=== PATIENT | male | born 1965 | race Caucasian/White ===

== ENCOUNTER 2016-03-17 13:44 | Emergency (ER) | payer MEDICARE, MEDICAID ==
[2016-03-17 13:49] VITALS: BP 160/93
[2016-03-17] MEDS ORDERED: Amoxicillin/Clavulanate TAB* 875 MG PO ONE (14:33)
[2016-03-17] MEDS ORDERED: Ibuprofen TAB* 800 MG PO ONE (14:34)
--- NOTE | 2016-03-17 14:40 | ED ---
I, Oh,Ronen, scribed for Vignesh Hammer MD on 03/17/16 at 1417 . Throat Pain/Nasal Congestion - HPI Summary HPI Summary: This 50 y/o male presents to ED for acute throat pain since 2 days ago. Swallowing makes the throat discomfort worse. Pt became concerned about possible strep throat. Pt reports mild chills but denies any fever. Pt is nonsmoker and occasional drinker. He denies any PMHx, but reports PSHx of splenectomy. EMR indicates PMHx of HTN. FHx is negative for cardiac dz but positive for HTN. - History of Current Complaint Chief Complaint: EDThroatPain Hx Obtained From: Patient, Medical Records Onset/Duration: Sudden Onset, Lasting Days, Still Present Severity: Mild Associated Signs And Symptoms: Positive: Negative. Negative: Dysphagia Cough: None - Allergies/Home Medications Allergies/Adverse Reactions: Allergies Allergy/AdvReac Type Severity Reaction Status Date / Time nose drops Allergy Severe Swelling Uncoded 11/30/15 08:03 Of Face,Lips,& Throat PMH/Surg Hx/FS Hx/Imm Hx Endocrine/Hematology History: Denies: Hx Diabetes, Hx Thyroid Disease Cardiovascular History: Reports: Hx Hypertension - X 7-10 YEARS TAKES RX. Respiratory History: Denies: Hx Asthma, Hx Chronic Obstructive Pulmonary Disease (COPD), Hx Seasonal Allergies GI History: Denies: Hx Ulcer - Surgical History Surgery Procedure, Year, and Place: 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 Infectious Disease History: No Infectious Disease History: Denies: Hx Hepatitis, Hx Human Immunodeficiency Virus (HIV), Traveled Outside the [place] in Last 30 Days - Family History Known Family History: Positive: Hypertension - Social History Alcohol Use: Occasionally Hx Substance Use: Yes Substance Use Type: Reports: Marijuana Hx Tobacco Use: No Smoking Status (MU): Never Smoked Tobacco Review of Systems Positive: Chills. Negative: Fever Positive: Sore Throat Negative: Anxious, Depressed All Other Systems Reviewed And Are Negative: Yes Physical Exam - Summary Physical Exam Summary: Vital signs: Reviewed Gen.: Patient is a well-developed and nourished male in no acute distress. Patient is lying comfortably on the stretcher. Head: Normacephalic and atraumatic Eyes: PERRLA, EOMI x2. Ears: Right and Left ear canal and TM WNL Nose and mouth: Positive pharingeal erythema w/o exudate. Neck: Supple, no lymphadenopathy, no JVD Lungs: CTA B/L CVS: S1 & S2 present. No murmurs appreciated. Triage Information Reviewed: Yes Vital Signs On Initial Exam: Initial Vitals Temp Pulse Resp BP Pulse Ox 97.1 F 68 16 160/93 100 03/17/16 13:45 03/17/16 13:45 03/17/16 13:45 03/17/16 13:45 03/17/16 13:45 Vital Signs Reviewed: Yes Diagnostics - Vital Signs Vital Signs Temp Pulse Resp BP Pulse Ox 03/17/16 13:45 97.1 F 68 16 160/93 100 - Laboratory Lab Results: Lab Results 03/17/16 Range/Units 14:15 Group A Strep Rapid Negative (Negative) Lab Statement: Any lab studies that have been ordered have been reviewed, and results considered in the medical decision making process. EENT Course/Dx - Course Assessment/Plan: This 50 y/o male presents to ED for acute throat pain since 2 days ago. Swallowing makes the throat discomfort worse. Pt became concerned about possible strep throat. Pt reports mild chills but denies any fever. Patient has Hx of splenectomy. He was given Augmentin. He will be discharged home with f/u of PMD. If he develops worsening symptoms and fever he should return to the Ed for further w/u and management. I discussed all my findings and test results with the patient. Patient understands and agrees. Patient was instructed to return to the emergency room immediately if any of the symptoms return or worsens. Patient understands and agrees. Plan of care was discussed with the patient and patient understands and agrees with the plan of care. All questions were answered at patient satisfaction. There were no further complaints or concerns. Patient was instructed to follow up with primary care physician within 3 to 5 days. Patient is hemodynamically stable. Patient is alert and oriented x 3. No acute neurological deficits. - Diagnoses Provider Diagnoses: Pharyngitis Discharge - Discharge Plan Condition: Stable Disposition: HOME Prescriptions: Amoxicillin/Clavulanate TAB* [Augmentin TAB 875*] 875 mg PO BID #20 tab Patient Education Materials: Pharyngitis (ED), Amoxicillin/Clavulanate Potassium (By mouth) Referrals: Ismael Lyn MD [Primary Care Provider] - 2 Days The documentation as recorded by the scribe, Oh,Soohyun accurately reflects the service I personally performed and the decisions made by me, Vignesh Hammer MD.
== END 2016-03-17 15:09 | disposition home or self-care (01) ==
LOC: ED 13:44
DX: J02.9 Acute pharyngitis, unspecified (principal); I10 Essential (primary) hypertension; Z88.8 Allergy status to other drugs, medicaments and biological substances
CPT/HCPCS: 87651; 99282; A9270-GY

== ENCOUNTER → 2016-05-20 | Emergency (ER) | payer MEDICARE, MEDICAID ==
[~2016-05-20] MED LIST: Azithromycin TAB* 250 MG PO ONE; LORazepam TAB(*) 1 MG PO ONE; Potassium Chlor TAB* 20 MEQ TAB.ER PO ONE; cefTRIAXone VIAL(*) 250 MG VIAL IM ONE
[2016-05-20 06:51] LABS: Urine Bacteria Absent (Absent); Urine Bilirubin Negative (Negative); Urine Glucose Negative (Negative); Urine Nitrite Negative (Negative)
--- NOTE | 2016-05-20 06:53 | ED ---
grupo Alice[employer] Timothy, scribed for Nick Dunlap MD on 05/20/16 at 0610 . Psychiatric Complaint - HPI Summary HPI Summary: Earle Menon Jr. is a 51 yo male presenting to [facility] with high BP, anxiety. Pt states he has been awake for 75 hours straight because he is urinating "every 10 minutes", and it khoury at the end. he states he vomited from anxiety. He states he has been out of Xanax for the past 3 days. Pt is very anxious per triage. He also claims a rash for the past month that he has used hydrocortisone on for itch relief. A girl he has been intimate with had a yeast infection, she took a pill and he was given one as well over 2 months ago. He states the Sx are the same now. He states he has "felt warm" and has had chills. He denies pain around his testicles, but complains of itching around his scrotum. He also notices some discharge. His MHx includes HTN, GERD, anxiety , and substance use. - History Of Current Complaint Time Seen by Provider: 05/20/16 06:05 Hx Obtained From: Patient Onset/Duration: Sudden Onset Timing: Constant Severity Initially: Moderate Severity Currently: Moderate Character: Anxious Aggravating Factor(s): Medication Non-compliance - no xanax for 3 days Has Suicidal: Denies: Thoughts, With A Plan Has Homicidal: Denies: Thoughts, With A Plan - Allergies/Home Medications Allergies/Adverse Reactions: Allergies Allergy/AdvReac Type Severity Reaction Status Date / Time Amoxicillin Allergy Mild Hives Verified 05/20/16 06:00 nose drops Allergy Severe Swelling Uncoded 11/30/15 08:03 Of Face,Lips,& Throat PMH/Surg Hx/FS Hx/Imm Hx Endocrine/Hematology History: Denies: Hx Diabetes, Hx Thyroid Disease Cardiovascular History: Reports: Hx Hypertension - X 7-10 YEARS TAKES RX. 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 Infectious Disease History: No Infectious Disease History: Denies: Hx Hepatitis, Hx Human Immunodeficiency Virus (HIV), Traveled Outside the [place] in Last 30 Days - Family History Known Family History: Positive: Hypertension - Social History Alcohol Use: Occasionally Hx Substance Use: Yes Substance Use Type: Reports: Marijuana Hx Tobacco Use: No Smoking Status (MU): Never Smoked Tobacco Review of Systems Positive: Fever - "feels warm", Chills Eyes: Negative ENT: Negative Cardiovascular: Negative Respiratory: Negative Positive: Vomiting Positive: burning, discharge, frequency Musculoskeletal: Negative Positive: Rash - itching around scrotum Neurological: Negative Psychological: Normal All Other Systems Reviewed And Are Negative: Yes Physical Exam - Summary Physical Exam Summary: The patient is well-nourished in no acute distress and in no acute pain. The skin is warm and diaphoretic and skin color reflects adequate perfusion. There is no rash on the palms of his hands. HEENT: The head is normocephalic and atraumatic. The pupils are equal and reactive. The conjunctivae are clear and without drainage. Nares are patent and without drainage. Mouth reveals moist mucous membranes and the throat is without erythema and exudate. The external ears are intact. The ear canals are patent and without drainage. The tympanic membranes are intact. Neck is supple with full range of motion and non-tender. There are no carotid bruits. There is no neck vein distension. Respiratory: Chest is non-tender. Lungs are clear to auscultation and breath sounds are symmetrical and equal. Cardiovascular: Hear is regular rate and rhythm. There is no murmur or rub auscultated. There is no peripheral edema and pulses are symmetrical and equal. Abdomen: The abdomen is soft and non-tender. There are normal bowel sounds heard in all four quadrants and there is no organomegaly palpated. Musculoskeletal: There is no back pain noted. Extremities are non-tender with full range of motion. There is good capillary refill. There is no peripheral edema or calf tenderness elicited. Pelvic: no testicular pain, bilateral inguinal adenpoathy, questionable penile discharge. Neurological: Patient is alert and oriented to person, place and time. The patient has symmetrical motor strength in all four extremities. Cranial nerves are grossly intact. Deep tendon reflexes are symmetrical and equal in all four extremities. Psychiatric: The patient is anxious. Triage Information Reviewed: Yes Vital Signs On Initial Exam: Initial Vitals Temp Pulse Resp BP Pulse Ox 98.5 F 91 18 178/100 97 05/20/16 05:50 05/20/16 05:50 05/20/16 05:50 05/20/16 05:50 05/20/16 05:50 Vital Signs Reviewed: Yes Diagnostics - Vital Signs Vital Signs Temp Pulse Resp BP Pulse Ox 05/20/16 05:50 98.5 F 91 18 178/100 97 - Laboratory Lab Statement: Any lab studies that have been ordered have been reviewed, and results considered in the medical decision making process. Course/Dx - Course Assessment/Plan: Earle Menon is a 51 yo male presenting to [facility] with anxiety, HTN, and urinary frequency and burning for the past 75 hours presenting him from sleeping. He also has an itchy rash on his scrotum. After clinical examination and review of his lab work, he will be discharged home with anxiety , prostatits, and STI, as well as appropriate instructions. - Differential Dx/Clinical Impression Differential Diagnosis/HQI/PQRI: Positive: Anxiety, Other - uti, prostatitis, std, Provider Diagnosis: Anxiety, Prostatitis, STI (sexually transmitted infection), Dysuria Discharge - Discharge Plan Condition: Stable Disposition: HOME Prescriptions: DOXYcycline CAP(*) [DOXYcycline 100MG CAP(*)] 100 mg PO BID #20 cap LORazepam TAB(*) [Ativan 1 MG TAB (*)] 1 mg PO Q8H PRN #15 tab MDD 3 PRN Reason: anxiety Patient Education Materials: Anxiety (ED), Prostatitis (ED), Sexually Transmitted Diseases (ED) Referrals: Ismael Lyn MD [Primary Care Provider] - Vignesh Pierce MD [Medical Doctor] - 2 Days Additional Instructions: Please follow up with Dr. Pierce regarding your visit to the emergency department today. Return to the emergency department with any new or recurring symptoms. The documentation as recorded by the grupo alaniz Timothy accurately reflects the service I personally performed and the decisions made by , Nick Dunlap MD.
[2016-05-20 06:55] LABS: Hematocrit 46 % (42-52); Hemoglobin 15.3 g/dl (14.0-18.0); Mean Corpuscular HGB Conc 34 g/dl (31-36); Mean Corpuscular Hemoglobin 31 pg (27-31); Mean Corpuscular Volume 91 fL (80-94); Mean Platelet Volume 10 um3 (7.4-10.4); Red Blood Count 5.02 10^6/ul (4.0-5.4); Red Cell Distribution Width 15 % (10.5-15)
[2016-05-20 06:58] LABS: Add Diff/Slide Review? Slide Review Added
[2016-05-20 07:10] LABS: Albumin 4.7 g/dL (3.2-5.2); BUN/Creatinine Ratio 10.4 (8-20); Calcium 10.8 mg/dL (8.6-10.3); EGFR African American 72.9 (>60); EGFR Non-African American 56.7 (>60); Globulin 3.7 g/dL (2-4); Potassium 3.3 mmol/L (3.5-5.0); Total Bilirubin 0.6 mg/dL (0.2-1.0); Total Protein 8.4 g/dL (6.4-8.9)
--- NOTE | 2016-05-20 07:20 | ED ---
Progress - Progress Note Progress Note: reviewed labs pt potassium 3.3 - pt take HCTZ Will give 40meq po Pt denies abd pain - aware slight elevation LFT Pt giving additional urine Will d/c home Course/Dx - Diagnoses Provider Diagnoses: Anxiety, Prostatitis, STI (sexually transmitted infection), Dysuria
[2016-05-20 07:35] VITALS: BP 167/95
[2016-05-20 08:51] LABS: C Reactive Protein 1.88 mg/L (< 5.00)
== END | disposition home or self-care (01) ==
LOC: ED 05:39
DX: N41.9 Inflammatory disease of prostate, unspecified (principal); A64 Unspecified sexually transmitted disease; R30.0 Dysuria; F41.9 Anxiety disorder, unspecified
CPT/HCPCS: 36415; 80053; 81003; 81015; 83605; 85025; 86140; 87491; 87591; 96372; 99282; A9270-GY; J0696

== ENCOUNTER 2016-06-30 17:27 | Emergency (ER) | payer MEDICARE, MEDICAID ==
--- NOTE | 2016-06-30 19:28 | UC ---
Complaint Male HPI - HPI Summary HPI Summary: Has had dysuria for months (since March?). Was seen in ED for same sx, treated for STIs though testing turned out negative. He felt like his sx improved for a while but now are back. Couldn't sleep last night, refers to dysuria, but was not getting up to go to bathroom. Instead it is the anxiety that was keeping him awake. He took his last two xanax last night but they didn' t help. Has chronic problems sleeping. Rash on groin and genitals for a couple weeks, red and flaky. Used monistat topically because partner had a vaginal yeast infection, wasn't helping so he switched to vitamin E lotion. For the last week or so noticed two small areas of hair thinning on R posterior part of head. Denies pain or itching. - History of Current Complaint Chief Complaint: UCGU Stated Complaint: RASH Time Seen by Provider: 06/30/16 18:53 Hx Obtained From: Patient Onset/Duration: Gradual Onset, Lasting Weeks Timing: Constant Severity Initially: Mild Severity Currently: Mild Location: Scrotum Character: Burning Aggravating Factor(s): Voiding, Palpation Associated Signs And Symptoms: Positive: Dysuria - Allergies/Home Medications Allergies/Adverse Reactions: Allergies Allergy/AdvReac Type Severity Reaction Status Date / Time Amoxicillin Allergy Mild Hives Verified 06/30/16 18:39 nose drops Allergy Severe Swelling Uncoded 06/30/16 18:39 Of Face,Lips,& Throat Home Medications: Home Medications Alprazolam [Xanax] 0.5 mg PO 06/30/16 [History] PMH/Surg Hx/FS Hx/Imm Hx Endocrine History Of: Denies: Diabetes, Thyroid Disease Cardiovascular History Of: Reports: Hypertension - X 7-10 YEARS TAKES RX. Denies: Cardiac Disorders Respiratory History Of: Denies: COPD, Asthma GI/ History Of: Denies: Ulcer Psychological History Of: Reports: Anxiety - Surgical History Surgical History: Yes Surgery Procedure, Year, and Place: 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 - Family History Known Family History: Positive: Hypertension - Social History Lives: With Family Alcohol Use: Daily Substance Use Type: Marijuana Smoking Status (MU): Never Smoked Tobacco Review of Systems Constitutional: Negative Skin: Rash Eyes: Negative ENT: Negative Respiratory: Negative Cardiovascular: Negative Gastrointestinal: Negative Genitourinary: Dysuria Motor: Negative Neurovascular: Negative Musculoskeletal: Negative Neurological: Negative Psychological: Anxious All Other Systems Reviewed And Are Negative: Yes Physical Exam Triage Information Reviewed: Yes Appearance: Well-Nourished Vital Signs: Initial Vital Signs Temp 98.1 F 06/30/16 18:42 Pulse 81 06/30/16 18:42 Resp 18 06/30/16 18:42 BP 147/110 06/30/16 18:42 Pulse Ox 100 06/30/16 18:42 Vital Signs Reviewed: Yes Eye Exam: Normal Eyes: Positive: Conjunctiva Clear ENT Exam: Normal ENT: Positive: Normal ENT inspection, Hearing grossly normal, Pharynx normal, TMs normal Dental Exam: Normal Neck exam: Normal Neck: Positive: Supple, Nontender, No Lymphadenopathy Respiratory Exam: Normal Respiratory: Positive: Chest non-tender, Lungs clear, Normal breath sounds, No respiratory distress, No accessory muscle use Cardiovascular Exam: Normal Cardiovascular: Positive: RRR, No Murmur Musculoskeletal Exam: Normal Psychological Exam: Other - anxious, interrupting a lot, somewhat pressured speech Skin Exam: Other - red confluent skin on genitals, some white flaking. No penile discharge. Testes descended and nontender. Skin: Positive: Other - 2 round areas 2cm and 3cm Complaint Male Course/Dx - Differential Dx/Diagnosis Provider Diagnoses: dysuria. genital dermatitis. anxiety. Elevated blood pressure due to anxiety Discharge - Discharge Plan Condition: Stable Disposition: HOME Prescriptions: Ciprofloxacin TAB* [Cipro 500 MG TAB*] 500 mg PO BID #14 tab Fluconazole [Diflucan 150 MG (NF)] 150 mg PO ONCE #2 tab Zolpidem TAB* [Ambien TAB*] 10 mg PO BEDTIME PRN #2 tab MDD 1 PRN Reason: Insomnia Patient Education Materials: Dysuria (ED), Dermatitis (ED) Referrals: James Hurley MD [Primary Care Provider] - Additional Instructions: Please follow up with Dr. Hurley's office about your trouble with sleeping ALESSANDRO. You have asked here and at the emergency department for sleep aides, but these are not the places to help with this problem. Call the Urology referral to make an appointment as soon as possible. Take the antifungal medicine but do not apply any more creams, ointments, or salves to your rash.
[2016-06-30 19:46] VITALS: BP 163/109
== END 2016-06-30 19:51 | disposition home or self-care (01) ==
LOC: UCEAST 17:27
DX: N48.89 Other specified disorders of penis (principal); R30.0 Dysuria; I10 Essential (primary) hypertension; F12.90 Cannabis use, unspecified, uncomplicated; F41.9 Anxiety disorder, unspecified; Z88.3 Allergy status to other anti-infective agents
CPT/HCPCS: 81003; 87086; 99212; G0463

== ENCOUNTER 2016-08-04 11:34 | Emergency (ER) | payer MEDICARE, MEDICAID ==
[2016-08-04 11:38] VITALS: BP 135/96
[2016-08-04] MEDS ORDERED: NS 0.9% 1000 ML* 1,000 ML IV ONE (12:02)
[2016-08-04 13:22] LABS: Hematocrit 44 % (42-52); Hemoglobin 14.8 g/dl (14.0-18.0); Mean Corpuscular HGB Conc 34 g/dl (31-36); Mean Corpuscular Hemoglobin 31 pg (27-31); Mean Corpuscular Volume 91 fL (80-94); Mean Platelet Volume 10 um3 (7.4-10.4); Red Blood Count 4.83 10^6/ul (4.0-5.4); Red Cell Distribution Width 15 % (10.5-15); White Blood Count 8.4 10^3/ul (3.5-10.8)
[2016-08-04 13:38] LABS: Albumin 4.5 g/dL (3.2-5.2); BUN/Creatinine Ratio 11.4 (8-20); C Reactive Protein 4.9 mg/L (< 5.00); EGFR African American 96.5 (>60); EGFR Non-African American 75.1 (>60); Globulin 3.4 g/dL (2-4); Potassium 3.5 mmol/L (3.5-5.0); Total Bilirubin 1.1 mg/dL (0.2-1.0); Total Protein 7.9 g/dL (6.4-8.9)
[2016-08-04 13:49] LABS: Urine Bacteria Absent (Absent); Urine Bilirubin Negative (Negative); Urine Glucose 1+(50 mg/dL) (Negative); Urine Nitrite Negative (Negative)
[2016-08-04] MEDS ORDERED: DOXYcycline CAP(*) 100 MG PO ONE (14:53)
[2016-08-04] MEDS ORDERED: cefTRIAXone VIAL(*) 250 MG VIAL IM ONE (14:53)
--- NOTE | 2016-08-04 18:30 | ED ---
Claudio Alicea Billy, scribed for Vignesh Hammer MD on 08/04/16 at 1201 . GI/ HPI - HPI Summary HPI Summary: Patient is a 51 year-old male coming to [facility] for evaluation of numerous urinary complaints for the last 2 days. He reports increased urinary frequency, urgency, and burning with urination. He has had to get up from bed to urinate every 15 minutes. Furthermore, he states that he has had difficulty maintaining a constant stream of urine when he urinates, and that the urine "only comes out in drips." Additionally, he reports intermittent penile discharge. He has not had his prostate checked in the last 9 or 10 years. - History of Current Complaint Chief Complaint: EDUrogenitalProblems Time Seen by Provider: 08/04/16 12:00 Stated Complaint: NOT ABLE TO PEE Hx Obtained From: Patient Onset/Duration: Started Days Ago Timing: Constant Severity: Moderate Current Severity: Moderate Pain Intensity: 3 Associated Signs and Symptoms: Positive: Dysuria Additional Signs & Symptoms: Positive: Penile Discharge Aggravating Factor(s): Urination - burning Alleviating Factor(s): Nothing - Allergy/Home Medications Allergies/Adverse Reactions: Allergies Allergy/AdvReac Type Severity Reaction Status Date / Time Amoxicillin Allergy Mild Hives Verified 06/30/16 18:39 nose drops Allergy Severe Swelling Uncoded 06/30/16 18:39 Of Face,Lips,& Throat PMH/Surg Hx/FS Hx/Imm Hx Endocrine/Hematology History: Denies: Hx Diabetes, Hx Thyroid Disease Cardiovascular History: Reports: Hx Hypertension - X 7-10 YEARS TAKES RX. 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 Infectious Disease History: No Infectious Disease History: Denies: Hx Hepatitis, Hx Human Immunodeficiency Virus (HIV), Traveled Outside the [place] in Last 30 Days - Family History Known Family History: Positive: Hypertension - Social History Alcohol Use: Occasionally Hx Substance Use: Yes Substance Use Type: Reports: Marijuana Hx Tobacco Use: No Smoking Status (MU): Never Smoked Tobacco Review of Systems Negative: Fever Genitourinary: Other - penile discharge Positive: dysuria, frequency, urgency All Other Systems Reviewed And Are Negative: Yes Physical Exam - Summary Physical Exam Summary: VITAL SIGNS: Reviewed. GENERAL: Patient is a well-developed and nourished male who is lying comfortable in the stretcher. Patient is not in any acute respiratory distress. HEAD AND FACE: No signs of trauma. No ecchymosis, hematomas or skull depressions. No sinus tenderness. EYES: PERRLA, EOMI x 2, No injected conjunctiva, no nystagmus. EARS: Hearing grossly intact. Ear canals and tympanic membranes are within normal limits. MOUTH: Oropharynx within normal limits. NECK: Supple, trachea is midline, no adenopathy, no JVD, no carotid bruit, no c- spine tenderness, neck with full ROM. CHEST: Symmetric, no tenderness at palpation LUNGS: Clear to auscultation bilaterally. No wheezing or crackles. CVS: Regular rate and rhythm, S1 and S2 present, no murmurs or gallops appreciated. ABDOMEN: Soft, non-tender. No signs of distention. No rebound no guarding, and no masses palpated. Bowel sounds are normal. EXTREMITIES: FROM in all major joints, no edema, no cyanosis or clubbing. NEURO: Alert and oriented x 3. No acute neurological deficits. Speech is normal and follows commands. SKIN: Dry and warm : Circumcised penis, both testicles are descended. No masses are appreciated. No odorous discharge noted. Positive cremasteric reflex. Triage Information Reviewed: Yes Vital Signs On Initial Exam: Initial Vitals Temp Pulse Resp BP Pulse Ox 96.7 F 83 18 135/96 99 08/04/16 11:36 08/04/16 11:36 08/04/16 11:36 08/04/16 11:36 08/04/16 11:36 Vital Signs Reviewed: Yes - [place] Coma Scale Coma Scale Total: 15 Diagnostics - Vital Signs Vital Signs Temp Pulse Resp BP Pulse Ox 08/04/16 11:54 96.7 F 83 16 135/96 100 08/04/16 11:36 96.7 F 83 18 135/96 99 - Laboratory Lab Results: Lab Results 08/04/16 08/04/16 08/04/16 Range/Units 13:10 13:10 13:10 WBC 8.4 (3.5-10.8) 10^3/ul RBC 4.83 (4.0-5.4) 10^6/ul Hgb 14.8 (14.0-18.0) g/dl Hct 44 (42-52) % MCV 91 (80-94) fL MCH 31 (27-31) pg MCHC 34 (31-36) g/dl RDW 15 (10.5-15) % Plt Count 203 (150-450) 10^3/ul MPV 10 (7.4-10.4) um3 Neut % (Auto) 55.8 (38-83) % Lymph % (Auto) 27.5 (25-47) % Payne % (Auto) 10.6 H (1-9) % Eos % (Auto) 5.4 (0-6) % Baso % (Auto) 0.7 (0-2) % Absolute Neuts (auto) 4.7 (1.5-7.7) 10^3/ul Absolute Lymphs (auto) 2.3 (1.0-4.8) 10^3/ul Absolute Monos (auto) 0.9 H (0-0.8) 10^3/ul Absolute Eos (auto) 0.5 (0-0.6) 10^3/ul Absolute Basos (auto) 0.1 (0-0.2) 10^3/ul Absolute Nucleated RBC 0.01 10^3/ul Nucleated RBC % 0.1 Sodium 133 (133-145) mmol/L Potassium 3.5 (3.5-5.0) mmol/L Chloride 93 L (101-111) mmol/L Carbon Dioxide 32 (22-32) mmol/L Anion Gap 8 (2-11) mmol/L BUN 12 (6-24) mg/dL Creatinine 1.05 (0.67-1.17) mg/dL Est GFR ( Amer) 96.5 (>60) Est GFR (Non-Af Amer) 75.1 (>60) BUN/Creatinine Ratio 11.4 (8-20) Glucose 114 H (70-100) mg/dL Lactic Acid (0.5-2.0) mmol/L Calcium 10.0 (8.6-10.3) mg/dL Total Bilirubin 1.10 H (0.2-1.0) mg/dL AST 66 H (13-39) U/L ALT 46 (7-52) U/L Alkaline Phosphatase 48 (34-104) U/L C-Reactive Protein 4.90 (< 5.00) mg/L Total Protein 7.9 (6.4-8.9) g/dL Albumin 4.5 (3.2-5.2) g/dL Globulin 3.4 (2-4) g/dL Albumin/Globulin Ratio 1.3 (1-3) Lipase 50 (11.0-82.0) U/L Urine Color Yellow Urine Appearance Clear Urine pH 6.0 (5-9) Ur Specific Cecilia 1.017 (1.010-1.030) Urine Protein 1+(30 mg/dl) H (Negative) Urine Ketones Negative (Negative) Urine Blood Negative (Negative) Urine Nitrate Negative (Negative) Urine Bilirubin Negative (Negative) Urine Urobilinogen Negative (Negative) Ur Leukocyte Esterase Negative (Negative) Urine WBC (Auto) Absent (Absent) Urine RBC (Auto) 1+(3-5/hpf) H (Absent) Ur Squamous Epith Cells Present H (Absent) Urine Bacteria Absent (Absent) Urine Glucose 1+(50 mg/dl) H (Negative) 08/04/16 Range/Units 13:10 WBC (3.5-10.8) 10^3/ul RBC (4.0-5.4) 10^6/ul Hgb (14.0-18.0) g/dl Hct (42-52) % MCV (80-94) fL MCH (27-31) pg MCHC (31-36) g/dl RDW (10.5-15) % Plt Count (150-450) 10^3/ul MPV (7.4-10.4) um3 Neut % (Auto) (38-83) % Lymph % (Auto) (25-47) % Payne % (Auto) (1-9) % Eos % (Auto) (0-6) % Baso % (Auto) (0-2) % Absolute Neuts (auto) (1.5-7.7) 10^3/ul Absolute Lymphs (auto) (1.0-4.8) 10^3/ul Absolute Monos (auto) (0-0.8) 10^3/ul Absolute Eos (auto) (0-0.6) 10^3/ul Absolute Basos (auto) (0-0.2) 10^3/ul Absolute Nucleated RBC 10^3/ul Nucleated RBC % Sodium (133-145) mmol/L Potassium (3.5-5.0) mmol/L Chloride (101-111) mmol/L Carbon Dioxide (22-32) mmol/L Anion Gap (2-11) mmol/L BUN (6-24) mg/dL Creatinine (0.67-1.17) mg/dL Est GFR ( Amer) (>60) Est GFR (Non-Af Amer) (>60) BUN/Creatinine Ratio (8-20) Glucose (70-100) mg/dL Lactic Acid 0.6 (0.5-2.0) mmol/L Calcium (8.6-10.3) mg/dL Total Bilirubin (0.2-1.0) mg/dL AST (13-39) U/L ALT (7-52) U/L Alkaline Phosphatase (34-104) U/L C-Reactive Protein (< 5.00) mg/L Total Protein (6.4-8.9) g/dL Albumin (3.2-5.2) g/dL Globulin (2-4) g/dL Albumin/Globulin Ratio (1-3) Lipase (11.0-82.0) U/L Urine Color Urine Appearance Urine pH (5-9) Ur Specific Cecilia (1.010-1.030) Urine Protein (Negative) Urine Ketones (Negative) Urine Blood (Negative) Urine Nitrate (Negative) Urine Bilirubin (Negative) Urine Urobilinogen (Negative) Ur Leukocyte Esterase (Negative) Urine WBC (Auto) (Absent) Urine RBC (Auto) (Absent) Ur Squamous Epith Cells (Absent) Urine Bacteria (Absent) Urine Glucose (Negative) Result Diagrams: 08/04/16 13:10 08/04/16 13:10 Lab Statement: Any lab studies that have been ordered have been reviewed, and results considered in the medical decision making process. Re-Evaluation - Re-Evaluation First Eval Re-Evaluation Time: 14:32 Change: Unchanged GIGU Course/Dx - Course Assessment/Plan: Patient is a 51 year-old male coming to [facility] for evaluation of numerous urinary complaints for the last 2 days. He reports increased urinary frequency, urgency, and burning with urination. He has had to get up from bed to urinate every 15 minutes. Furthermore, he states that he has had difficulty maintaining a constant stream of urine when he urinates, and that the urine "only comes out in drips." Additionally, he reports intermittent penile discharge. He has not had his prostate checked in the last 9 or 10 years. Test results WNL. UA shows no UTI. At this point, I returned to the patient and asked if he had any penile discharge, to which he said he did. Therefore I have a presumption that he has an STI. We sent tests for GC/ Chlamydia but they will not return until tomorrow. I gave him the choice to have STI treatment today, or to follow up with PCP tomorrow. He chose to be treated here, and was given Rocephin and Doxycycline. He was also given a prescription for Doxycycline. He has been hydrated and is feeling better. He has no other complaints. I discussed all the findings and test results with the patient. Patient was instructed to return to the emergency room immediately if any of the symptoms return or worsens. Plan of care was discussed with the patient and understands and agrees. All questions were answered at patient satisfaction. There were no further complaints or concerns. Lung exam before discharge: CTA B/L. Good air exchange. No wheezing or crackles heard. CVS: S1 and S2 present. No murmurs appreciated. Patient is alert and oriented x 3. Patient is hemodynamically stable. Patient will be discharged home with follow up PCP in the next 2-3 day - Diagnoses Differential Diagnoses - Male: STD, Urinary Tract Infection, Other - Urinary retention Provider Diagnoses: Dysuria Discharge - Discharge Plan Condition: Stable Disposition: HOME Prescriptions: DOXYcycline CAP(*) [DOXYcycline 100MG CAP(*)] 100 mg PO BID #9 cap Patient Education Materials: Dysuria (ED) Referrals: Jatinder Smith NP [Primary Care Provider] - Additional Instructions: FOLLOW UP WITH YOUR PRIMARY CARE PHYSICIAN TOMORROW TO CHECK THE RESULTS OF THE GC/CHLAMYDIA CULTURE. The documentation as recorded by the Claudio alaniz Billy accurately reflects the service I personally performed and the decisions made by me, Vignesh Hammer MD.
== END 2016-08-04 15:38 | disposition home or self-care (01) ==
LOC: ED 11:34
DX: R30.0 Dysuria (principal)
CPT/HCPCS: 36415; 80053; 81003; 81015; 83605; 83690; 85025; 86140; 87491; 87591; 96372; 99282; A9270-GY; J0696

== ENCOUNTER 2016-09-30 19:38 | Emergency (ER) | payer MEDICARE, MEDICAID ==
[2016-09-30 21:37] LABS: Hematocrit 45 % (42-52); Mean Corpuscular HGB Conc 34 g/dl (31-36); Mean Corpuscular Hemoglobin 31 pg (27-31); Mean Corpuscular Volume 92 fL (80-94); Mean Platelet Volume 9 um3 (7.4-10.4); Red Blood Count 4.84 10^6/ul (4.0-5.4); Red Cell Distribution Width 15 % (10.5-15); White Blood Count 9.7 10^3/ul (3.5-10.8)
[2016-09-30 21:54] LABS: Albumin 4.1 g/dL (3.2-5.2); BUN/Creatinine Ratio 8.1 (8-20); Calcium 9.5 mg/dL (8.6-10.3); EGFR African American 103.3 (>60); EGFR Non-African American 80.3 (>60); Globulin 3.7 g/dL (2-4); Potassium 3.8 mmol/L (3.5-5.0); Total Bilirubin 0.6 mg/dL (0.2-1.0); Total Protein 7.8 g/dL (6.4-8.9)
[2016-09-30] MEDS ORDERED: Iohexol 300* (CONTRAST) 10 ML SDV IV ONE (22:00)
--- NOTE | 2016-09-30 22:07 | RAD ---
Indication: Headache, nausea, vomiting. Fell 2 stories from ladder. Head injury. Comparison: May 24, 2006 CT. Technique: Noncontrast CT vertex of skull through foramen magnum. Report: The sulci, ventricles, and basal cisterns are normal for age. [place] matter white matter differentiation is preserved without evidence for edema. No intra or extra axial hemorrhage is detected. Unremarkable orbital contents. Negative for calvarial or skull base fracture. Negative for scalp hematoma. The visualized paranasal sinuses and mastoid air spaces are clear. IMPRESSION: No CT evidence for traumatic brain injury. Negative unenhanced head CT.
[2016-10-01] MEDS ORDERED: Diazepam TAB(*) 5 MG PO ONE (00:37)
[2016-10-01] MEDS ORDERED: Ketorolac INJ* 30 MG/ML 1 ML VIAL IV PUSH ONE (00:37)
--- NOTE | 2016-10-01 00:37 | ED ---
Adult Trauma - HPI Summary HPI Summary: Pt here s/p fall 4 days ago. Reports he locked himself out of his apartment so he got a cheap ladder and tried climbing up to his 2nd story window to get in. As he attempted to open the window, the air conditioner unit fell out, causing him to go off balance and fall to his back. Once on the ground, the A/C unit then bounced off of the ground and struck him in the head where he lay. He is not sure if he lost consciousness but felt out of it for a minute. Took him a minute to get up. Here today with headache which started last night and has it again today - has had nausea with vomiting which makes Lt side back/rib pain worse. Also has pain in lower back/SI joint areas- reports this is where he landed on the ground. Denies neck pain, numbness, tingling, weakness. He is able to move all extremities w/o difficulty. Tried aspacream last night w/ minimal relief of Lt upper back/rib pain. Denies SOB, cough although Lt rib pain is worse w/ sneezing and vomiting. Med hx: HTN - take propranolol and HCTZ Anxiety - takes xanax but has not had any lately - History of Current Complaint Chief Complaint: EDTraumaMultiple Stated Complaint: FALL/HEAD,RIB INJURY Time Seen by Provider: 09/30/16 20:44 Hx Obtained From: Patient Pain Intensity: 6 - Allergy/Home Medications Allergies/Adverse Reactions: Allergies Allergy/AdvReac Type Severity Reaction Status Date / Time Amoxicillin Allergy Mild Hives Verified 06/30/16 18:39 nose drops Allergy Severe Swelling Uncoded 06/30/16 18:39 Of Face,Lips,& Throat PMH/Surg Hx/FS Hx/Imm Hx Previously Healthy: Yes Endocrine/Hematology History: Denies: Hx Anticoagulant Therapy, Hx Blood Disorders, Hx Diabetes, Hx Thyroid Disease Cardiovascular History: Reports: Hx Hypertension - X 7-10 YEARS TAKES RX ( propranolol, HCTZ) Respiratory History: Denies: Hx Asthma, Hx Chronic Obstructive Pulmonary Disease (COPD), Hx Seasonal Allergies GI History: Reports: Hx Gastroesophageal Reflux Disease Denies: Hx Ulcer History: Denies: Hx Renal Disease Psychiatric History: Reports: Hx Anxiety - xanax - Surgical History Surgery Procedure, Year, and Place: 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 Infectious Disease History: No Infectious Disease History: Denies: Hx Hepatitis, Hx Human Immunodeficiency Virus (HIV), Traveled Outside the [place] in Last 30 Days - Family History Known Family History: Positive: Hypertension - Social History Occupation: Unemployed - "off work for a few weeks" Lives: Alone Alcohol Use: Occasionally Hx Substance Use: Yes Substance Use Type: Reports: Marijuana Hx Tobacco Use: No Smoking Status (MU): Never Smoked Tobacco Review of Systems Constitutional: Negative Negative: Fatigue Eyes: Negative Negative: Photophobia, Blurred Vision, Diplopia Negative: Dental Pain Positive: Chest Pain - see HPI Negative: Shortness Of Breath Gastrointestinal: Other - see HPI Positive: no symptoms reported. Negative: hematuria Musculoskeletal: Other - see HPI Positive: Bruising - Lt elbow Neurological: Negative Positive: Headache. Negative: Weakness, Paresthesia, Numbness, Syncope, Slurred Speech Positive: Anxious All Other Systems Reviewed And Are Negative: Yes Physical Exam Triage Information Reviewed: Yes Vital Signs On Initial Exam: Initial Vitals Temp Pulse Resp BP Pulse Ox 99 F 74 20 149/106 99 09/30/16 19:46 09/30/16 19:46 09/30/16 19:46 09/30/16 19:46 09/30/16 19:46 Vital Signs Reviewed: Yes Appearance: Positive: Well-Appearing, Well-Nourished, Pain Distress - appears comfortable at rest but difficulty transitioning to different positions in bed Skin: Positive: Warm, Dry - healing ecchymosis over Lt elbow - no edema, FROM; annular scabbed abrasion over central forehead - no edema, no d/c, mild TTP; no other areas of erythema/ecchymosis over affected areas of pain Head/Face: Positive: Normal Head/Face Inspection - no gross deformity Eyes: Positive: Normal, EOMI, DEIRDRE, Conjunctiva Clear ENT: Positive: Hearing grossly normal, Pharynx normal, TMs normal - no hemotympanum. Negative: Nasal drainage Dental: Negative: Dental Fracture @ Neck: Positive: Supple, Nontender Respiratory/Lung Sounds: Positive: Clear to Auscultation, Breath Sounds Present. Negative: Rales, Rhonchi, Subcutaneous Emphysema, Stridor, Wheezes, Other - no flail chest Cardiovascular: Positive: Normal, RRR, Pulses are Symmetrical in both Upper and Lower Extremities, S1, S2. Negative: Leg Edema Left, Leg Edema Right Abdomen Description: Positive: Soft, Other: - palpation over lower ab produces pain to Lt rib area Bowel Sounds: Positive: Present Musculoskeletal: Positive: Strength/ROM Intact, Pain @ - Lt posterior ribs are TTP; SI joints are TTP B/L Neurological: Positive: Normal, Sensory/Motor Intact, Alert, Oriented to Person Place, Time, CN Intact II-III Psychiatric: Positive: Anxious - [place] Coma Scale Coma Scale Total: 15 Diagnostics - Vital Signs Vital Signs Temp Pulse Resp BP Pulse Ox 09/30/16 22:59 98.7 F 70 20 138/90 99 09/30/16 20:44 99 F 74 20 149/106 99 09/30/16 19:46 99 F 74 20 149/106 99 - Laboratory Lab Results: Lab Results 09/30/16 09/30/16 Range/Units 21:25 21:25 WBC 9.7 (3.5-10.8) 10^3/ul RBC 4.84 (4.0-5.4) 10^6/ul Hgb 15.0 (14.0-18.0) g/dl Hct 45 (42-52) % MCV 92 (80-94) fL MCH 31 (27-31) pg MCHC 34 (31-36) g/dl RDW 15 (10.5-15) % Plt Count 206 (150-450) 10^3/ul MPV 9 (7.4-10.4) um3 Neut % (Auto) 56.1 (38-83) % Lymph % (Auto) 29.5 (25-47) % [place] % (Auto) 12.1 H (1-9) % Eos % (Auto) 0.8 (0-6) % Baso % (Auto) 1.5 (0-2) % Absolute Neuts (auto) 5.4 (1.5-7.7) 10^3/ul Absolute Lymphs (auto) 2.9 (1.0-4.8) 10^3/ul Absolute Monos (auto) 1.2 H (0-0.8) 10^3/ul Absolute Eos (auto) 0.1 (0-0.6) 10^3/ul Absolute Basos (auto) 0.1 (0-0.2) 10^3/ul Absolute Nucleated RBC 0 10^3/ul Nucleated RBC % 0 Sodium 129 L (133-145) mmol/L Potassium 3.8 (3.5-5.0) mmol/L Chloride 91 L (101-111) mmol/L Carbon Dioxide 32 (22-32) mmol/L Anion Gap 6 (2-11) mmol/L BUN 8 (6-24) mg/dL Creatinine 0.99 (0.67-1.17) mg/dL Est GFR ( Amer) 103.3 (>60) Est GFR (Non-Af Amer) 80.3 (>60) BUN/Creatinine Ratio 8.1 (8-20) Glucose 130 H (70-100) mg/dL Calcium 9.5 (8.6-10.3) mg/dL Total Bilirubin 0.60 (0.2-1.0) mg/dL AST 51 H (13-39) U/L ALT 40 (7-52) U/L Alkaline Phosphatase 56 (34-104) U/L Total Protein 7.8 (6.4-8.9) g/dL Albumin 4.1 (3.2-5.2) g/dL Globulin 3.7 (2-4) g/dL Albumin/Globulin Ratio 1.1 (1-3) Result Diagrams: 09/30/16 21:25 09/30/16 21:25 Lab Statement: Any lab studies that have been ordered have been reviewed, and results considered in the medical decision making process. Adult Trauma Course/Dx - Course Course Of Treatment: Pt here w/ multiple pain sx s/p fall from 2 story ladder 4 days ago. Here today w/ TOTH (n/v 1st 2 days) - Lt rib and back pain. CT's and labs are negative for acute pathology and WNL respectively. Diagnosed w/ concussion, contusions and abrasion. Also reviewed results of incidental CT findings: 1) ground glass appearance in lung tissue - pt is unaware of this findings. Denies pulm sx and will f/u w/ PCP. 2) Thickened bladder - pt has urinated once an hour while here - denies pain and hematuria. Admits to UTI last month- tx'd and resolved. Does not feel the same. Offered U/A here however he wants to leave. Agrees to f/u w/ PCP. 3) hernia - pt denies GI sx and notes he's aware of this dx - states this happened after his appendectomy repair. Aware of danger s/sx to watch for. Also reviewed danger s/sx of when to return to ED. Pt agrees w/ plan. - Diagnoses Provider Diagnoses: Fall from height of greater than 3 feet, Concussion, Scalp abrasion, Left elbow contusion, Contusion of rib on left side, Hip sprain Discharge - Discharge Plan Condition: Stable Disposition: HOME Prescriptions: Cyclobenzaprine TAB* [Flexeril 10 MG TAB*] 10 mg PO TID PRN #15 tab PRN Reason: Pain Ibuprofen TAB* [Motrin TAB* 600 MG] 600 mg PO Q6H PRN #20 tab PRN Reason: Pain Patient Education Materials: Concussion (ED), Contusion in Adults (ED) Forms: *Work Release Referrals: Jatinder Smith NP [Primary Care Provider] - Additional Instructions: You appear to have a concussion and internal contusions/bruises of ribs and muscles as well as bones of the back. It is advised that you try heat in the morning followed by gentle stretches and ice for pain and swelling as day goes on. You may take ibuprofen 600mg every 6 hours with food and try topical analgesic rubs for pain as well. You may also take tylenol 650mg every 6 hours as needed for pain. It is important that you rest both physically and cognitively with your concussion. Follow-up with your PCP Wednesday for recheck of symptoms and injuries. Call tomorrow morning to make an appointment. *If you develop change in vision, vomiting, weakness, numbness, neck pain, balance issues or syncope, return to ED NOTE: your CT scan revealed incidental findings of lung abnormality and bladder abnormality. Please discuss the need for further testing with your PCP. *If you develop fever, chills, shortness of breath, cough, difficulty breathing , pain with urination, abdominal pain or flank pain, blood in urine, return to ED
[2016-10-01 01:12] VITALS: BP 167/103
--- NOTE | 2016-10-01 07:47 | ED ---
Progress - Progress Note Progress Note: left msg for patient to call ED back regarding X-ray findings of left posterior 7th rib fracture and liver lesion on CT that will require RUQ ultrasound as outpt Course/Dx - Course Course Of Treatment: Pt here w/ multiple pain sx s/p fall from 2 story ladder 4 days ago. Here today w/ TOTH (n/v 1st 2 days) - Lt rib and back pain. CT's and labs are negative for acute pathology and WNL respectively. Diagnosed w/ concussion, contusions and abrasion. Also reviewed results of incidental CT findings: 1) ground glass appearance in lung tissue - pt is unaware of this findings. Denies pulm sx and will f/u w/ PCP. 2) Thickened bladder - pt has urinated once an hour while here - denies pain and hematuria. Admits to UTI last month- tx'd and resolved. Does not feel the same. Offered U/A here however he wants to leave. Agrees to f/u w/ PCP. 3) hernia - pt denies GI sx and notes he's aware of this dx - states this happened after his appendectomy repair. Aware of danger s/sx to watch for. Also reviewed danger s/sx of when to return to ED. Pt agrees w/ plan. - Diagnoses Provider Diagnoses: Fall from height of greater than 3 feet, Concussion, Scalp abrasion, Left elbow contusion, Contusion of rib on left side, Hip sprain
--- NOTE | 2016-10-01 07:50 | RAD ---
INDICATION: Trauma landed on back left side. COMPARISON: There are no prior studies available for comparison. TECHNIQUE: A CT scan of the chest, abdomen and pelvis was performed and without intravenous and oral contrast following intravenous injection of 97 ml of Omnipaque 300 nonionic contrast. Contiguous axial sections were obtained from the lung apices through the symphysis pubis. Images were reconstructed in the coronal and sagittal planes. FINDINGS: There are patchy groundglass infiltrates present in the right upper and lower lobe. No pleural effusion or pneumothorax is seen. The thoracic aorta is normal in caliber. No mediastinal hemorrhage is seen. No significant enlarged mediastinal or hilar lymph nodes are seen. The heart is within normal limits in size. No pericardial effusion is present. The liver is normal in size and decreased in attenuation consistent with fatty infiltration. There is a small hypervascular nodule in the anterior portion of the right hepatic lobe possibly representing a hemangioma measuring 6 x 7 mm in size although nonspecific. There is also a small calcification in the posterior segment of the right hepatic lobe measuring 7 mm in size. The spleen is absent consistent with the patient's history of a prior splenectomy. The pancreas appears to be within normal limits. The kidneys and adrenal glands are normal in size. There is no evidence for hydronephrosis. No significant focal renal abnormality is seen. There is mild diffuse thickening of the wall of the urinary bladder. The aorta is normal in caliber and demonstrates homogeneous contrast opacification. No significant enlarged retroperitoneal lymph nodes are seen. The stomach, small and large bowel appear nondistended. The appendix appears to be within normal limits. There is an anterior abdominal wall hernia in the upper abdomen centered just to the right of the midline containing a portion of the transverse colon which appears nondistended. No bowel wall thickening is present. There is mild sigmoid diverticulosis. No free intraperitoneal air or fluid is seen. There is a nondisplaced fracture of the left posterior seventh rib. No other fractures are seen. The results of this exam were called to the emergency Dr. Reeder. IMPRESSION: 1. NONDISPLACED FRACTURE OF THE LEFT POSTERIOR SEVENTH RIB. 2. SMALL NONSPECIFIC GROUNDGLASS INFILTRATES IN THE RIGHT LUNG POSSIBLY SECONDARY TO AN INFECTIOUS PROCESS. RECOMMEND CLINICAL CORRELATION. 3. SMALL HYPERVASCULAR LESION WITHIN THE LIVER POSSIBLY REPRESENTING A HEMANGIOMA. RECOMMEND A FOLLOW-UP RIGHT UPPER QUADRANT ULTRASOUND. 4. HEPATIC STEATOSIS. 5. STATUS POST SPLENECTOMY AND CHOLECYSTECTOMY. 6. MILD THICKENING OF THE WALL OF THE URINARY BLADDER INCOMPLETE DISTENTION VERSUS CYSTITIS. 7. ANTERIOR BOWEL WALL HERNIA CONTAINING NONDISTENDED TRANSVERSE COLON.
== END 2016-10-01 01:13 | disposition home or self-care (01) ==
LOC: ED 19:38
DX: S06.0X0A Concussion without loss of consciousness, initial encounter (principal); S50.02XA Contusion of left elbow, initial encounter; S00.01XA Abrasion of scalp, initial encounter; S20.212A Contusion of left front wall of thorax, initial encounter; R51 Headache; R07.9 Chest pain, unspecified; W19.XXXA Unspecified fall, initial encounter; Y93.9 Activity, unspecified; Y92.9 Unspecified place or not applicable
CPT/HCPCS: 36415; 70450; 71260; 74177; 80053; 85025; 96374; 99283; A9270-GY; J1885; Q9967

== ENCOUNTER 2017-10-27 19:21 | Observation (INO) | payer MEDICARE, MEDICAID ==
[2017-10-27] MEDS ORDERED: NS 0.9% 1000 ML* 1,000 ML IV ONE (20:15)
--- NOTE | 2017-10-27 20:19 | ED ---
HPI Chest Pain - History of Current Complaint Chief Complaint: EDChestPainROMI Time Seen by Provider: 10/27/17 20:11 Hx Obtained From: Patient Onset/Duration: Started Days Ago - since yesterday Initial Severity: Moderate Current Severity: Moderate Pain Intensity: 4 Pain Scale Used: 0-10 Numeric Chest Pain Location: Discrete at: - L chest wall pain Aggravating Factor(s): Nothing Alleviating Factor(s): Nothing - Allergy/Home Medications Allergies/Adverse Reactions: Allergies Allergy/AdvReac Type Severity Reaction Status Date / Time amoxicillin Allergy Hives Verified 10/27/17 19:32 nose drops Allergy Severe Swelling Uncoded 10/27/17 19:32 Of Face,Lips,& Throat PMH/Surg Hx/FS Hx/Imm Hx Endocrine/Hematology History: Denies: Hx Anticoagulant Therapy, Hx Blood Disorders, Hx Diabetes, Hx Thyroid Disease Cardiovascular History: Reports: Hx Hypertension - X 7-10 YEARS TAKES RX ( propranolol, HCTZ) Respiratory History: Denies: Hx Asthma, Hx Chronic Obstructive Pulmonary Disease (COPD), Hx Seasonal Allergies GI History: Reports: Hx Gastroesophageal Reflux Disease Denies: Hx Ulcer History: Denies: Hx Renal Disease Musculoskeletal History: Denies: Hx Rheumatoid Arthritis Psychiatric History: Reports: Hx Anxiety - xanax - Surgical History Surgery Procedure, Year, and Place: 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 Infectious Disease History: No Infectious Disease History: Denies: Hx Hepatitis, Hx Human Immunodeficiency Virus (HIV), Traveled Outside the [place] in Last 30 Days - Family History Known Family History: Positive: Hypertension - Social History Alcohol Use: Occasionally Hx Substance Use: Yes Substance Use Type: Reports: Marijuana Hx Tobacco Use: No Smoking Status (MU): Never Smoked Tobacco Review of Systems Positive: Chest Pain - L chest wall pain Positive: Syncope - x2 yesterday Positive: Anxious All Other Systems Reviewed And Are Negative: Yes Physical Exam Triage Information Reviewed: Yes Vital Signs On Initial Exam: Initial Vitals Temp Pulse Resp BP Pulse Ox 99.1 F 77 18 169/114 100 10/27/17 19:28 10/27/17 19:28 10/27/17 19:28 10/27/17 19:28 10/27/17 19:28 Vital Signs Reviewed: Yes Diagnostics - Vital Signs Vital Signs Temp Pulse Resp BP Pulse Ox 10/27/17 19:28 99.1 F 77 18 169/114 100 - Laboratory Lab Statement: Any lab studies that have been ordered have been reviewed, and results considered in the medical decision making process. Discharge - Sign-Out/Discharge Documenting (check all that apply): Patient Departure - Discharge Plan Referrals: Jatinder Smith NP [Primary Care Provider] - - Attestation Statements Document Initiated by Scribe: Yes Documenting Scribe: Huan Zaidi Provider For Whom Scribe is Documenting (Include Credential): Amrit Ortiz MD Scribe Attestation: Huan Alicea, scribed for Amrit Ortiz MD on 10/27/17 at 2019.
[2017-10-27] MEDS ORDERED: Thiamine IV* 100 MG/ML 2 ML VIAL IV ONE (20:20)
[2017-10-27] MEDS ORDERED: LORazepam INJ* 2 MG/ML 1 ML VIAL IV PUSH ONE (20:41)
--- NOTE | 2017-10-27 20:46 | ED ---
Syncope/Near Syncope - HPI Summary HPI Summary: This patient is a 52 year old M presenting to ED with a chief complaint of syncope x2 yesterday of unknown length of time. The patient reports he has been having a lot of stress recently due to his daughter being taken out of town by his ex-girlfriend and therefore started to drink beer heavily for about 15 days straight; his last drink was 2 days ago. He also reports taking Xanax daily for his anxiety but ran out 2 days ago. The patient rates the pain 4/10 in severity. Symptoms aggravated by nothing. Symptoms alleviated by nothing. Patient reports chest tightness, anxiety, light-headedness, rash on inner thigh bilaterally, vomiting after PO, and a small bruise where he reports doctors found a spot on his liver and frequent urination. Patient denies any pain. - History Of Current Complaint Chief Complaint: EDChestPainROMI Time Seen by Provider: 10/27/17 20:11 Hx Obtained From: Patient Onset/Duration: Sudden Onset, Resolved Timing: Intermittent Episode Lasting Context: Unwitnessed Associated Head Trauma: No Aggravating Factor(s): Nothing Alleviating Factor(s): Nothing Associated Signs And Symptoms: Other - Patient reports chest tightness, anxiety , light-headedness, rash on inner thigh bilaterally, vomiting after PO, and a small bruise where he reports doctors found a spot on his liver and frequent urination. Patient denies any pain. - Allergies/Home Medications Allergies/Adverse Reactions: Allergies Allergy/AdvReac Type Severity Reaction Status Date / Time amoxicillin Allergy Hives Verified 10/27/17 19:32 nose drops Allergy Severe Swelling Uncoded 10/27/17 19:32 Of Face,Lips,& Throat PMH/Surg Hx/FS Hx/Imm Hx Endocrine/Hematology History: Denies: Hx Anticoagulant Therapy, Hx Blood Disorders, Hx Diabetes, Hx Thyroid Disease Cardiovascular History: Reports: Hx Hypertension - X 7-10 YEARS TAKES RX ( propranolol, HCTZ) Respiratory History: Denies: Hx Asthma, Hx Chronic Obstructive Pulmonary Disease (COPD), Hx Seasonal Allergies GI History: Reports: Hx Gastroesophageal Reflux Disease Denies: Hx Ulcer History: Denies: Hx Renal Disease Musculoskeletal History: Denies: Hx Rheumatoid Arthritis Psychiatric History: Reports: Hx Anxiety - xanax - Surgical History Surgery Procedure, Year, and Place: 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 Infectious Disease History: No Infectious Disease History: Denies: Hx Hepatitis, Hx Human Immunodeficiency Virus (HIV), Traveled Outside the [place] in Last 30 Days - Family History Known Family History: Positive: Hypertension - Social History Alcohol Use: Occasionally Hx Substance Use: Yes Substance Use Type: Reports: Marijuana Hx Tobacco Use: No Smoking Status (MU): Never Smoked Tobacco Review of Systems Positive: Other - heavy alcohol intake Positive: Chest Pain - chest tightness Positive: Vomiting - after PO Positive: frequency Positive: Other - denies any pain Positive: Rash - rash on inner thigh bilaterally, Bruising - small bruise where he reports doctors found a spot on his liver Neurological: Other - light-headedness Positive: Syncope - x2 yesterday Psychological: Other - stressed Positive: Anxious - ran out of Xanax 2 days ago All Other Systems Reviewed And Are Negative: Yes Physical Exam - Summary Physical Exam Summary: Appearance: Well appearing, no pain distress Skin: warm, dry, erythematous rash on inside of both thighs, bruise on L shoulder Head/face: normal Eyes: EOMI, DEIRDRE ENT: normal, mucous membranes are moist Neck: supple, non-tender Respiratory: CTA, breath sounds present Cardiovascular: RRR, pulses symmetrical, elevated blood pressure Abdomen: non-tender, soft Bowel Sounds: present Musculoskeletal: normal, strength/ROM intact Neuro: sensory motor intact, A&Ox3, has hand tremors GCS 15 Triage Information Reviewed: Yes Vital Signs On Initial Exam: Initial Vitals Temp Pulse Resp BP Pulse Ox 99.1 F 77 18 169/114 100 10/27/17 19:28 10/27/17 19:28 10/27/17 19:28 10/27/17 19:28 10/27/17 19:28 Vital Signs Reviewed: Yes Diagnostics - Vital Signs Vital Signs Temp Pulse Resp BP Pulse Ox 10/27/17 20:26 72 12 99 10/27/17 20:25 75 12 182/121 99 10/27/17 19:28 99.1 F 77 18 169/114 100 - Laboratory Result Diagrams: 10/27/17 20:51 10/27/17 20:51 Lab Statement: Any lab studies that have been ordered have been reviewed, and results considered in the medical decision making process. - Radiology CXR Radiology Interpretation Completed By: ED Physician - No acute disease. Pending radiologist official interpretation. [facility] CT Brain CT CT Interpretation Completed By: Radiologist - No acute infarct or hemorrhage. Small rounded SWI signal in the left occipital and parietal lobe likely representing chronic microhemorrhages. Minimal chronic microvascular ischemic changes. Bilateral mastoid air cell effusions, right greater than left. ED physician has reveiwed this radiology report. - EKG 1923 Cardiac Rate: NL - [address] Segment: Normal EKG Interpretation: normal axis interval Re-Evaluation - Re-Evaluation First Eval Re-Evaluation Time: 21:30 Comment: The patient is doing much better. Discussed plan for admission. Course/Dx Course Of Treatment: Patient is a heavy drinker and has taken himself off alcohol and has run out of his benzodiazepine over the last 2 days. Alcohol in his system is 0. He had heavy tremors, elevated blood pressures. He also reports 2 syncopal episodes with prolonged downtime. He now tells me that perhaps this was related to alcohol plus trazodone. It sounds like these happen when he was drinking. Concern would be these were alcohol withdrawal seizures. His benzodiazepine is also interpreted into withdrawal syndrome. Either would be high risk for seizures but both is extreme risk. He was given Ativan here intravenously and has calmed significantly. I discussed the case with the hospitalist who will admit for further. - Diagnoses Differential Diagnosis/HQI/PQRI: Positive: Other - Alcohol/benzodiazepine withdrawal, seizure, syncope, metabolic abnormality Provider Diagnoses: Alcohol withdrawal syndrome, Benzodiazepine withdrawal, Syncope, Dermatitis - Physician Notifications Discussed Care of Patient With: Wilmer Monteolngo Time Discussed With Above Provider: 21:36 Instructed by Provider To: Other - Consulted Dr. Montelongo who accepts the patient for admission. Discharge - Sign-Out/Discharge Documenting (check all that apply): Patient Departure - Discharge Plan Condition: Fair Disposition: ADMITTED TO [facility] Referrals: Jatinder Smith NP [Primary Care Provider] - - Billing Disposition and Condition Condition: FAIR Disposition: Admitted to [facility] - Attestation Statements Document Initiated by Scribe: Yes Documenting Scribe: Huan Zaidi Provider For Whom Scribe is Documenting (Include Credential): Amrit Ortiz MD Scribe Attestation: IHuan, scribed for Amrit Ortiz MD on 10/27/17 at 2130. Scribe Documentation Reviewed: Yes Provider Attestation: The documentation as recorded by the Huan alaniz accurately reflects the service I personally performed and the decisions made by me, Amrit Ortiz MD
[2017-10-27 20:57] LABS: ABS Basophils 0.1 10^3/ul (0-0.2); ABS Eosinophils 0 10^3/ul (0-0.6); ABS Monocytes 1.3 10^3/ul (0-0.8); ABS Neutrophils 5.4 10^3/ul (1.5-7.7); ABS Nucleated RBC 0 10^3/ul; Eosinophil % 0.4 % (0-6); Hematocrit 42 % (42-52); Hemoglobin 14.6 g/dl (14.0-18.0); Lymphocyte % 30.5 % (25-47); Mean Corpuscular HGB Conc 35 g/dl (31-36); Mean Corpuscular Hemoglobin 32 pg (27-31); Mean Corpuscular Volume 90 fL (80-94); Mean Platelet Volume 9.8 um3 (7.4-10.4); Nucleated Red Blood Cells % 0.1; Platelet Count 162 10^3/ul (150-450); Red Blood Count 4.63 10^6/ul (4.00-5.40); Red Cell Distribution Width 14 % (10.5-15); White Blood Count 9.8 10^3/ul (3.5-10.8)
[2017-10-27 21:16] LABS: EGFR Non-African American 64.1 (>60)
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
[2017-10-27 22:50] LABS: Urine Appearance Clear; Urine Blood Negative (Negative); Urine Color Yellow; Urine Ketones Trace (Negative); Urine Protein 2+(100 mg/dL) (Negative); Urine Red Blood Cell Trace(0-2/hpf) (Absent); Urine Specific Gravity 1.014 (1.010-1.030); Urine Urobilinogen Negative (Negative); Urine White Blood Cell Trace(0-5/hpf) (Absent)
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
[2017-10-27] MEDS ORDERED: Melatonin 3 MG TAB PO PRN (23:01)
[2017-10-27] MEDS ORDERED: Acetaminophen TAB* 325 MG PO PRN (23:02)
[2017-10-27] MEDS ORDERED: Ondansetron ODT TAB* 4 MG PO PRN (23:02)
[2017-10-28] MEDS: NS 0.9% 1000 ML* 1,000 ML IV SCH ×2 (00:04→09:13)
[2017-10-28] MEDS: LORazepam INJ* 2 MG/ML 1 ML VIAL IV PUSH SCH ×2 (00:04→12:29)
[2017-10-28] MEDS: LORazepam TAB(*) 1 MG PO SCH ×3 (00:04→15:53)
[2017-10-28 06:00] LABS: Urine Appearance Clear; Urine Color Yellow; Urine Specific Gravity 1.014 (1.010-1.030)
[2017-10-28] MEDS ORDERED: Omeprazole CAP* 20 MG PO SCH (06:00)
[2017-10-28 06:01] LABS: Urine Blood Negative (Negative); Urine Ketones 1+ (Negative); Urine Protein 1+(30 mg/dL) (Negative); Urine Urobilinogen Negative (Negative)
[2017-10-28 06:02] LABS: Urine Red Blood Cell Trace(0-2/hpf) (Absent); Urine White Blood Cell Absent (Absent)
--- NOTE | 2017-10-28 07:41 | RAD ---
HISTORY: CP, left chest wall pain COMPARISONS: January 26, 2017 VIEWS: 1: frontal portable view of the chest at 8:42 PM FINDINGS: LINES AND TUBES: None. CARDIOMEDIASTINAL SILHOUETTE: The cardiomediastinal silhouette is normal for portable technique. PLEURA: The costophrenic angles are sharp. No pleural abnormalities are noted. LUNG PARENCHYMA: The lungs are clear. ABDOMEN: The upper abdomen is clear. There is no subphrenic gas. BONES AND SOFT TISSUES: No bone or soft tissue abnormalities are noted. IMPRESSION: NO ACTIVE CARDIOPULMONARY DISEASE. R0
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
[2017-10-28 08:36] LABS: ABS Basophils 0.1 10^3/ul (0-0.2); ABS Eosinophils 0.2 10^3/ul (0-0.6); ABS Lymphocytes 2.7 10^3/ul (1.0-4.8); ABS Monocytes 1.3 10^3/ul (0-0.8); ABS Neutrophils 6.3 10^3/ul (1.5-7.7); ABS Nucleated RBC 0 10^3/ul; Eosinophil % 1.6 % (0-6); Hematocrit 40 % (42-52); Hemoglobin 13.6 g/dl (14.0-18.0); Lymphocyte % 25.3 % (25-47); Mean Corpuscular HGB Conc 34 g/dl (31-36); Mean Corpuscular Hemoglobin 31 pg (27-31); Mean Corpuscular Volume 91 fL (80-94); Mean Platelet Volume 9.4 um3 (7.4-10.4); Nucleated Red Blood Cells % 0; Platelet Count 148 10^3/ul (150-450); Red Blood Count 4.38 10^6/ul (4.00-5.40); Red Cell Distribution Width 14 % (10.5-15); White Blood Count 10.6 10^3/ul (3.5-10.8)
[2017-10-28] MEDS ORDERED: Folic Acid TAB* 1 MG PO SCH (09:00)
[2017-10-28] MEDS ORDERED: Docusate CAP* 100 MG PO SCH (09:00)
[2017-10-28] MEDS ORDERED: Thiamine TAB* 100 MG TAB PO SCH (09:00)
[2017-10-28] MEDS ORDERED: Propranolol TAB* 10 MG PO SCH (09:00)
[2017-10-28] MEDS ORDERED: Multivitamins/Minerals TAB PO SCH (09:00)
[2017-10-28 09:03] LABS: EGFR Non-African American 74.8 (>60)
[2017-10-28 13:05] VITALS: BP 152/106
--- NOTE | 2017-10-28 13:33 | ECHO ---
Patient: MARCOS PALOMINO [facility] Rec#: [id number] : 1965 Date: 10/28/2017 Age: 52y Height: 168 cm / 66.1 in Weight: 65 kg / 143.3 lbs Sex: M BSA: 1.74 Room#: 438 Admit Date#: 10/27/2017 Type: Inpatient Referring: MARCELA ANTONIO Reading: Anibal Lemons MD Data Processing Equipment Repairer: Kylie Robison,LINDSAYCS,RDMS CC: ROGER GOVEA VALIDATION SOFTWARE FACILITATOR Transthoracic Echocardiogram Indication: Syncope BP: 151/94 HR: 80 Rhythm: NSR Findings History: HTN, ETOH Technical Comments: The study quality is good. Left Ventricle: The left ventricular chamber size is normal. There is no left ventricular hypertrophy. false tendon present. The estimated ejection fraction is 55-60%. Abnormal left ventricular diastolic function is observed. Abnormal left ventricular diastolic filling is observed, consistent with impaired relaxation. Left Atrium: The left atrial chamber size is normal. Right Ventricle: The right ventricle wall thickness is normal. The right ventricular cavity size is normal. The right ventricular global systolic function is low normal. Right Atrium: The right atrial cavity size is normal. Aortic Valve: The aortic valve is trileaflet. There is no evidence of aortic valve thickening. Systolic excursion of the aortic valve is normal. There is no evidence of aortic regurgitation. There is no evidence of aortic stenosis. Mitral Valve: The mitral valve leaflets are mildly thickened. There is a trace of mitral regurgitation. There is no evidence of mitral stenosis. Tricuspid Valve: The tricuspid valve leaflets are normal. There is trace tricuspid regurgitation. Unable to estimate the right ventricular systolic pressure. Pulmonic Valve: The pulmonic valve structure is not well visualized. Pericardium: There is no significant pericardial effusion. Aorta: The ascending aorta is not well visualized. There is no dilatation of the aortic arch. The aortic root is normal in size. Pulmonary Artery: The main pulmonary artery is not well visualized. Venous: The inferior vena cava appears normal in size. There is a greater than 50% respiratory change in the inferior vena cava dimension. Summary: There was not any prior study for comparison. Conclusions The estimated ejection fraction is 55-60%. Abnormal left ventricular diastolic filling is observed, consistent with impaired relaxation. The right ventricular global systolic function is low normal. There is a trace of mitral regurgitation. There is trace tricuspid regurgitation. Measurements Name Value Normal Range RVIDd (AP) 2D 2.4 cm (0.9 - 2.6) RVDdMajor (2D) 3.1 cm (2.2 - 4.4) RAd ISD 4CH 4.6 cm (3.4 - 4.9) RA (A4C)W 4.4 cm (2.9 - 4.6) IVSd (2D) 1 cm (0.6 - 1) LVPWd (2D) 0.8 cm (0.6 - 1) LVIDd (2D) 4.2 cm (3.6 - 5.4) LVIDs (2D) 3.3 cm - LV FS (2D) 21 % (25 - 45) Aortic Annulus 2 cm (1.4 - 2.6) Ao root diameter (2D) 3 cm (2.1 - 3.5) Aortic arch 2.7 cm (1.8 - 3.4) LA dimension (AP) 2D 3.3 cm (2.3 - 3.8) LAd ISD 4CH 4.7 cm (2.9 - 5.3) LA ISD 4CH W 3.1 cm (2.5 - 4.5) Name Value Normal Range LA ESV BP (A/L) index 21 ml/m2 - Name Value Normal Range MV E-wave Vmax 0.7 m/sec - MV deceleration time 272 msec - MV A-wave Vmax 0.4 m/sec - MV E:A ratio 1.5 ratio - LV septal e' Vmax 0.07 m/sec - LV lateral e' Vmax 0.1 m/sec - LV E:e' septal ratio 10 ratio - LV E:e' lateral ratio 7 ratio - Name Value Normal Range AV Vmax 1.1 m/sec - AV VTI 20 cm - AV peak gradient 5 mmHg - AV mean gradient 3 mmHg - LVOT Vmax 1.1 m/sec - LVOT VTI 19 cm - LVOT peak gradient 5 mmHg - LVOT mean gradient 2 mmHg - KEANU Vmax 0.7 m/sec - Name Value Normal Range RAP 8 mmHg - IVC diameter 1.6 cm - Name Value Normal Range PV Vmax 0.7 m/sec - PV peak gradient 2 mmHg -
--- NOTE | 2017-10-28 15:29 | CONSULT ---
Consult Consult: Attending Physician: Alyson Maya MD Consulting Physician: Zully Greer NP Reason for Consult: Sign out against medical advice for alcohol withdrawal treatment Chief complaint: I was withdrawing but I am better, I can do it with my Xanax Source of information: Patient, friend, chart review, primary provider Identifying Data: Patient is 52 y/o male, is currently living with his friend, employed at his [employer]. History of presenting illness: Patient is a 52 y/o male, single, living with a friend, employed at his [employer], with history anxiety/insomnia. Patient was admitted to medical floor due to withdrawal from alcohol and benzodiazepine. Patient reported that he was drinking more than usual ~12 beers daily after his ex-GF took off with her daughter 2 weeks ago. Patient decided to quit 3-4 days ago but and tried to wean himself off with his Xanax prescription but had already ran out of it. Patient reported came to the hospital E.D with his friend to get few days of Xanax. But later agreed to stay overnight to get help with withdrawal symptoms. Patient this morning was feeling better and did not want to stay at the hospital further to help with withdrawal symptoms. Patient reported significant resolution in his symptoms and wanted to be discharged against medical advice. Patient got agitated when told that he needed to be in the hospital. Patient got agitated and pulled out his IV. Patient was educated about his situation, consequences of refusing treatment and alternates which can lead to seizure, delirium tremens and . Patient was able to verbalize understanding and make reasonable decision making and wanted to be discharged and taper himself off with help of his Xanax and Alcohol gradually. Patients friend Rosa was called in front of patient with his consent and expressed no concern of safety including suicidality or homcidality, no reported manic or psychotic symptoms. Patients Rosa was felt comfortable picking up patient from the hospital and patient agreed with that plan. Rosa also reported that they were able to get his outpatient prescription of Xanax filled by the pharmacist. Patient agreed to take one dose long acting benzodiazepine in the hospital before leaving to help with withdrawal. Patient was counseled about alcohol use and reports that if he has getting off of alcohol he will be interested in going to rehab but no at this time. PAST PSYCHIATRIC HISTORY: Patient has history of no inpatient psychiatric hospitalization. Patient has history of outpatient treatment by Dr. Thomas for HTN, anxiety and insomnia. Patient has history of no suicidal thoughts, attempt or plan. Patient has no history of homicidal threats but no intent or attempt. Mental Status Examination: Appearance: 52 year old male, casually dressed, making fair eye contact, anxious , fair grooming and hygiene Behavior: cooperative, mild restlessness, was able to follow redirections Gait: normal Abnormal motor activity: none Speech: normal tone and volume, normal rate and rhythm Mood: I am better Affect: anxious, appropriate Thought process: goal directed to circumstantial at times Thought Content: Suicidal/Homicidal ideation: denies Delusions: none Obsessions: none Phobia: none Perceptual disturbance: none Attention: fair Orientation: grossly intact Concentration: fair Memory: fair Insight: fair Judgment: fair Impulse control: fair Diagnosis: Alcohol Use Disorder Anxiety Disorder unspecified Assessment: Patient with history of Anxiety/insomnia recently started abusing Alcohol more than usual for last 2 weeks and tried to quit 3 days ago. Patient currently admitted due to worsening of alcohol withdrawal and stayed overnight but wanting to leave the hospital and get himself slowly off of it by Xanax/ alcohol. Patient has also struggled with his relationship issues with exGF who recently left took off with his 8 year old daughter that lead to alcohol abuse but was able to cope with it and work with his family and friend to overcome this stressful situation. Patient was educated about his condition; further treatment needed at the hospital and consequence to refusal of treatment and understood it with reasonable decision making. Patient is not an imminent danger to self and others and can be discharged against Medical advice. Recommendations: Patient can be given one dose of Long acting Benzodiazepine before discharge which he agreed to take. Patient educated to not combine his medications with alcohol. Educated about risk and side effects. Patient can be discharged against medical advice and follow up with his primary care. Patient also counseled on Alcohol and Benzodiazepine abuse. Patient reported not abusing his medications but will try to get into rehab if he has difficulty time getting off of alcohol. Alyson Maya MD Attending Psychiatrist
[2017-10-28] MEDS ORDERED: Diazepam TAB(*) 5 MG PO ONE (15:51)
--- NOTE | 2017-10-29 02:41 | DS ---
DISCHARGE SUMMARY: DATE OF ADMISSION: 10/27/17. DATE OF DISCHARGE: 10/28/17. PROVIDER: Marcela Antonio NP. ATTENDING PHYSICIAN: Dr. Beebe * (report dictated by Marcela Antonio NP). PRIMARY CARE PROVIDER: Jatinder Smith NP. DISCHARGE DISPOSITION: Left against medical advise. HISTORY OF PRESENT ILLNESS AND HOSPITAL COURSE: Mr. Menon is a 52-year-old male who came in last evening and was admitted for alcohol withdrawal symptoms and syncope, started on WAM protocol with Ativan prophylactic taper. He has been monitored on Telemetry with a syncope workup. The patient reported that he took trazodone at home and then had some lightheadedness and felt like he was going to pass out and felt that he was not used to trazodone, however, he was currently undergoing a syncope workup, possible seizure has not been ruled out. He did undergo an echocardiogram which showed estimated ejection fraction of 55% to 60%, abnormal left ventricular diastolic filling observed consistent with impaired relaxation, right ventricular global systolic function is low normal. Trace mitral regurgitation and trace tricuspid regurgitation. He has had no noted arrhythmias on monitor. He has had no pre or syncopal episodes throughout the hospitalization. Today, the patient insists on being discharged to home. He is currently mildly detoxing and was quite confrontational during my examination. Per the night nurse, the patient was noted to having hallucinations. When the patient was asked about this, he stated that "I heard my ex-girlfriend talking through the closet" as he is pointing to the wall and did not appear that he quite understood why that this was abnormal and consistently denied that he was hallucinating. I asked the psychiatrist, Dr. Maya to evaluate the patient for capacity which he did this afternoon and found the patient to have capacity. The patient was not found to be hallucinating and was clearly able to understand with reason of decision making and leaving against medical advise. It was recommended that the patient be given a long-acting benzodiazepine such as Valium prior to discharge in which he was. I reviewed the against medical advise paper work with the patient and his girlfriend at the bedside. The patient appeared to be more calm, alert and oriented with mild tremors stating he understands the risks of severe illness, disability or and he signed the paper work. The girlfriend agrees to take the patient home reporting that he is close to his baseline. Again, discussed with the patient the concern about him leaving, however, he signed the AMA paper work and left in care of his girlfriend. The patient was educated on the risks of mixing benzodiazepine with alcohol with risks of and he states understanding. TIME SPENT: Approximately 60 minutes were spent. MARCELA ANTONIO, SANITATION WORKER CLEANING EQUIPMENT [id number]/CPS #: [id number] PEDRO
== END 2017-10-28 16:14 | disposition left against medical advice (07) ==
LOC: ED 19:21 → MEDTELE 23:16
PROVIDERS: ADMIT Hospitalist; ATTEND Internal Medicine
DX: F10.239 Alcohol dependence with withdrawal, unspecified (principal); Z53.21 Procedure and treatment not carried out due to patient leaving prior to being seen by health care provider; L30.9 Dermatitis, unspecified; R55 Syncope and collapse; R42 Dizziness and giddiness; R21 Rash and other nonspecific skin eruption; R11.10 Vomiting, unspecified; Z88.0 Allergy status to penicillin
CPT/HCPCS: 36415; 70450; 71045; 80053; 80307; 80320; 81003; 81015; 82550; 83605; 83690; 84484; 85025; 87086; 93005; 93306; 96374; 96375; 99284; A9270-GY; G0378; G0480; J2060; J3411

== ENCOUNTER 2018-05-02 11:31 | Emergency (ER) | payer MEDICARE, MEDICAID ==
[2018-05-02 13:06] LABS: INR 0.94 (0.77-1.02)
[2018-05-02 15:11] VITALS: BP 122/81
--- NOTE | 2018-05-02 16:25 | ED ---
Lower Extremity - HPI Summary HPI Summary: Patient is a 53-year-old male who presents to the ED with left groin pain. He is concerned over DVT. He denies any SOB or pain to the lower extremity otherwise. However, he has had a recent history of a hematoma to the left anterior interior thigh which was present x 1.5 mos however has since resolved. He is concerned over a blood clot due to the hematoma. He denies any recent travel, denies any smoking history. He denies any decreased sensation or blood flow to the ipsilateral leg. He does endorse a "heaviness" to the bilateral lower extremities which have been present times several weeks only upon standing. He states he feels otherwise well, denies any recent illness, denies any fevers, sweats, chills. He does endorse a mild cough. - History of Current Complaint Chief Complaint: EDExtremityLower Stated Complaint: LEFT LEG DISCOMFORT Time Seen by Provider: 05/02/18 12:21 Hx Obtained From: Patient Onset of Pain: Hours Onset/Duration: Hours Severity Initially: Mild Severity Currently: Mild Pain Intensity: 2 Pain Scale Used: 0-10 Numeric Location: Is Discrete @ - left groin Associated Signs And Symptoms: Negative: Swelling, Redness, Bruising Aggravating Factor(s): Standing, Ambulation Alleviating Factor(s): Rest Able to Bear Weight: Yes - Risk Factors Gout Risk Factors: Negative DVT Risk Factors: Negative Septic Arthritis Risk Factor: Negative - Allergies/Home Medications Allergies/Adverse Reactions: Allergies Allergy/AdvReac Type Severity Reaction Status Date / Time amoxicillin Allergy Hives Verified 10/27/17 19:32 Home Medications: Home Medications Oxycodone HCl 5 mg PO BID PRN MDD 2 05/02/18 [History Confirmed 05/02/18] hydroCHLOROthiazide [Hydrochlorothiazide] 12.5 mg PO DAILY 05/02/18 [History Confirmed 05/02/18] PMH/Surg Hx/FS Hx/Imm Hx Previously Healthy: Yes Endocrine/Hematology History: Denies: Hx Anticoagulant Therapy, Hx Blood Disorders, Hx Diabetes, Hx Thyroid Disease Cardiovascular History: Reports: Hx Hypertension - X 7-10 YEARS TAKES RX ( propranolol, HCTZ) Respiratory History: Denies: Hx Asthma, Hx Chronic Obstructive Pulmonary Disease (COPD), Hx Seasonal Allergies GI History: Reports: Hx Gastroesophageal Reflux Disease Denies: Hx Ulcer History: Denies: Hx Renal Disease Musculoskeletal History: Reports: Hx Back Problems Denies: Hx Rheumatoid Arthritis Sensory History: Denies: Hx Contacts or Glasses, Hx Hearing Aid Opthamlomology History: Denies: Hx Contacts or Glasses Neurological History: Reports: Hx Spinal Cord Injury Psychiatric History: Reports: Hx Anxiety - xanax - Surgical History Surgery Procedure, Year, and Place: 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 - Immunization History Hx Pertussis Vaccination: No Immunizations Up to Date: Yes Infectious Disease History: No Infectious Disease History: Denies: Hx Hepatitis, Hx Human Immunodeficiency Virus (HIV), Traveled Outside the [place] in Last 30 Days - Family History Known Family History: Positive: Hypertension - Social History Occupation: Employed Full-time Lives: With Family Alcohol Use: Daily Hx Substance Use: Yes Substance Use Type: Reports: Marijuana Hx Tobacco Use: No Smoking Status (MU): Never Smoked Tobacco Review of Systems Constitutional: Negative Negative: Fever, Chills, Fatigue, Skin Diaphoresis Negative: Epistaxis Negative: Palpitations, Chest Pain Negative: Vomiting Genitourinary: Negative Positive: no symptoms reported, see HPI Positive: Myalgia - left groin pain. Negative: Arthralgia Neurological: Negative All Other Systems Reviewed And Are Negative: Yes Physical Exam Triage Information Reviewed: Yes Vital Signs On Initial Exam: Initial Vitals Temp Pulse Resp BP Pulse Ox 98.4 F 72 16 136/95 97 05/02/18 11:49 05/02/18 11:49 05/02/18 11:49 05/02/18 11:49 05/02/18 11:49 Vital Signs Reviewed: Yes Appearance: Positive: Well-Appearing, Well-Nourished Skin: Positive: Warm, Skin Color Reflects Adequate Perfusion Head/Face: Positive: Normal Head/Face Inspection Eyes: Positive: EOMI, DEIRDRE, Conjunctiva Clear Neck: Positive: Supple Respiratory/Lung Sounds: Positive: Clear to Auscultation, Breath Sounds Present Cardiovascular: Positive: RRR, Pulses are Symmetrical in both Upper and Lower Extremities Musculoskeletal: Positive: Pain @ - left groin Neurological: Positive: Sensory/Motor Intact, Alert, Oriented to Person Place, Time, Speech Normal Psychiatric: Positive: Normal Diagnostics - Vital Signs Vital Signs Temp Pulse Resp BP Pulse Ox 05/02/18 15:10 98.8 F 67 16 122/81 98 05/02/18 13:59 98.6 F 65 16 133/79 99 05/02/18 11:49 98.4 F 72 16 136/95 97 - Laboratory Lab Results: Lab Results 05/02/18 05/02/18 Range/Units 12:35 12:35 INR (Anticoag Therapy) 0.94 (0.77-1.02) D-Dimer, Quantitative < 200 (Less Than 230) ng/mL Troponin I 0.00 (<0.04) ng/mL Lab Statement: Any lab studies that have been ordered have been reviewed, and results considered in the medical decision making process. Lower Extremity Course/Dx - Course Course Of Treatment: On physical examination, there is no erythema or ecchymosis to the anterior and medial thigh. Patient denies any pain to this area. He is only endorsing pain to the left groin area. Denies history of hernias. He states the pain is only present with standing from a sitting position or sitting from a standing position. He denies any pain at rest, sitting or standing otherwise. Symptoms have been present times approximately 1 -2 weeks. He has not used any [id number] medications for relief. He has not used any heat for relief. He is concerned over a DVT and is requesting a ultrasound of the leg. On physical examination, there is no evidence of a hernia, no palpable mass, femoral pulses +2 intact bilaterally, no abnormalities , no ecchymosis or erythema, or warmth. Patient denies any pain on deep palpation of this area. Flexion and extension of the left hip joint intact. DVT study obtained which shows no acute abnormalities. Discussed treatment options with patient and he is agreeable to take ibuprofen, use heat to the area and will follow-up with his PCP. He understands return precautions. - Diagnoses Provider Diagnoses: Groin pain Discharge - Sign-Out/Discharge Documenting (check all that apply): Patient Departure Patient Received Moderate/Deep Sedation with Procedure: No - Discharge Plan Condition: Stable Disposition: HOME Referrals: Jatinder Smith NP [Primary Care Provider] - Additional Instructions: Heat to the area Ibuprofen 600mg three times daily - Billing Disposition and Condition Condition: STABLE Disposition: Home
== END 2018-05-02 15:10 | disposition home or self-care (01) ==
LOC: ED 11:31
DX: R10.30 Lower abdominal pain, unspecified (principal); M79.605 Pain in left leg; K21.9 Gastro-esophageal reflux disease without esophagitis; I10 Essential (primary) hypertension; Z88.0 Allergy status to penicillin
CPT/HCPCS: 36415; 84484; 85379; 85610; 93005; 99282

== ENCOUNTER 2018-08-24 14:08 | Emergency (ER) | payer MEDICARE, MEDICAID ==
[2018-08-24 14:22] VITALS: BP 125/90
--- NOTE | 2018-08-24 15:28 | UC ---
Minor Trauma HPI - HPI Summary HPI Summary: Pt presents with c/o headache s/p slipping from standing height 8 days ago and hitting back of head and mouth against rocks. pt states that since he fell he has had intermittent TOTH, "fog", dizziness, difficulty sleeping since falling. Pt is concerned that he may have a concussion and is hoping that he will get aCT of his head. - History of Current Complaint Chief Complaint: UCHeadInjury Stated Complaint: HEAD/JAW INJURY Time Seen by Provider: 08/24/18 14:54 Hx Obtained From: Patient Onset/Duration: Sudden Onset Onset Of Pain: Immediate Severity Initially: Moderate Severity Currently: Moderate Pain Intensity: 5 Mechanism Of Injury: Fall From A Standing Position, Other - caught in machine at work Aggravating Factor(s): Movement Alleviating Factor(s): Nothing - Risk Factors Penetrating Injury Risk Factors: Negative - Allergies/Home Medications Allergies/Adverse Reactions: Allergies Allergy/AdvReac Type Severity Reaction Status Date / Time amoxicillin Allergy Hives Verified 08/24/18 14:21 PMH/Surg Hx/FS Hx/Imm Hx Previously Healthy: Yes Cardiovascular History: Hypertension Psychological History: Anxiety Other History Of: Negative For: Anticoagulant Therapy - Surgical History Surgical History: Yes Surgery Procedure, Year, and Place: 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 - Family History Known Family History: Positive: Hypertension - Social History Occupation: Employed Full-time Lives: With Family Alcohol Use: Occasionally Substance Use Type: Marijuana Smoking Status (MU): Never Smoked Tobacco Have You Smoked in the Last Year: Yes - marijuana Review of Systems All Other Systems Reviewed And Are Negative: Yes Constitutional: Positive: Negative Skin: Positive: Negative Eyes: Positive: Negative ENT: Positive: Negative Respiratory: Positive: Negative Cardiovascular: Positive: Negative Gastrointestinal: Positive: Negative Genitourinary: Positive: Negative Motor: Positive: Negative Neurovascular: Positive: Negative Musculoskeletal: Positive: Negative Neurological: Positive: Headache - intermittent Psychological: Positive: Negative, Other - pt has hx of anxiety. Is Patient Immunocompromised?: No Physical Exam Triage Information Reviewed: Yes Appearance: Well-Appearing Vital Signs: Initial Vital Signs Temp 98.5 F 08/24/18 14:16 Pulse 76 08/24/18 14:16 Resp 18 08/24/18 14:16 BP 125/90 08/24/18 14:16 Pulse Ox 100 08/24/18 14:16 Vital Signs Reviewed: Yes Eye Exam: Normal ENT Exam: Normal ENT: Positive: Hearing grossly normal Dental Exam: Normal Neck exam: Normal Respiratory Exam: Normal Respiratory: Positive: No respiratory distress Cardiovascular Exam: Normal Musculoskeletal Exam: Normal Neurological Exam: Normal Psychological Exam: Normal Skin Exam: Normal Diagnostics - Radiology No standard instances Radiology Interpretation Completed By: Radiologist - IMPRESSION: #. Negative unenhanced head CT. Minor Trauma Course/Dx - Differential Dx/Diagnosis Differential Diagnosis/HQI/PQRI: Other - concussion Provider Diagnosis: Mild concussion Discharge - Sign-Out/Discharge Documenting (check all that apply): Patient Departure All imaging exams completed and their final reports reviewed: Yes - Discharge Plan Condition: Stable Disposition: HOME Patient Education Materials: Head Injury (ED), Insomnia (ED), Safe Use of NSAIDs (ED) Referrals: Jatinder Smith NP [Primary Care Provider] - If Needed Additional Instructions: Please follow up with your PCP as needed. If your symptoms worsen, please seek care at the closest emergency room. - Billing Disposition and Condition Condition: STABLE Disposition: Home
== END 2018-08-24 16:00 | disposition home or self-care (01) ==
LOC: UCEAST 14:08
DX: S06.0X9A Concussion with loss of consciousness of unspecified duration, initial encounter (principal); W01.198A Fall on same level from slipping, tripping and stumbling with subsequent striking against other object, initial encounter; Y92.9 Unspecified place or not applicable; F41.9 Anxiety disorder, unspecified
CPT/HCPCS: 70450; 99211; G0463

== ENCOUNTER 2018-09-14 23:52 | Emergency (ER) | payer MEDICARE, MEDICAID ==
[2018-09-15] MEDS ORDERED: LORazepam TAB(*) 1 MG PO ONE (00:17)
--- NOTE | 2018-09-15 00:21 | ED ---
Substance Abuse/Use - HPI Summary HPI Summary: Pt is a 53 y/o M presenting to the ED with a chief complaint of alcohol withdrawal. He states he binge drank for about 9-10 days, and stopped on 09/14 at around 2200. He currently reports feeling very anxious and scared, as well as shakey. He denies any abd pain or chest pain. He has hx of HTN, which he takes medication for, as well as hx of anxiety. - History Of Current Complaint Chief Complaint: EDGeneral Stated Complaint: ETOH WITHDRAW PER PT Time Seen by Provider: 09/15/18 00:13 Hx Obtained From: Patient Onset/Duration of Drug/ETOH Abuse: Days Timing Of Abuse: Binge Use - 9-10 days Severity Initially: Moderate Severity Currently: Severe Character: Fearful, Anxious Aggravating Factor(s): Nothing Alleviating Factor(s): Nothing Associated Signs And Symptoms: Tremulous - Allergies/Home Medications Allergies/Adverse Reactions: Allergies Allergy/AdvReac Type Severity Reaction Status Date / Time amoxicillin Allergy Hives Verified 09/15/18 00:10 PMH/Surg Hx/FS Hx/Imm Hx Previously Healthy: Yes Endocrine/Hematology History: Denies: Hx Anticoagulant Therapy, Hx Blood Disorders, Hx Diabetes, Hx Thyroid Disease Cardiovascular History: Reports: Hx Hypertension - X 7-10 YEARS TAKES RX ( propranolol, HCTZ) Respiratory History: Denies: Hx Asthma, Hx Chronic Obstructive Pulmonary Disease (COPD), Hx Seasonal Allergies GI History: Reports: Hx Gastroesophageal Reflux Disease Denies: Hx Ulcer History: Denies: Hx Renal Disease Musculoskeletal History: Reports: Hx Back Problems Denies: Hx Rheumatoid Arthritis Sensory History: Denies: Hx Contacts or Glasses, Hx Hearing Aid Opthamlomology History: Denies: Hx Contacts or Glasses Neurological History: Reports: Hx Spinal Cord Injury Psychiatric History: Reports: Hx Anxiety - xanax - Surgical History Surgery Procedure, Year, and Place: 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 Infectious Disease History: No Infectious Disease History: Denies: Hx Hepatitis, Hx Human Immunodeficiency Virus (HIV), Traveled Outside the [place] in Last 30 Days - Family History Known Family History: Positive: Hypertension - Social History Alcohol Use: Daily Hx Substance Use: Yes Substance Use Type: Reports: Marijuana Hx Tobacco Use: No Smoking Status (MU): Never Smoked Tobacco Have You Smoked in the Last Year: Yes - marijuana Review of Systems Positive: Other - tremulous Negative: Chest Pain Negative: Abdominal Pain Positive: Anxious All Other Systems Reviewed And Are Negative: Yes Physical Exam - Summary Physical Exam Summary: Appearance: Well-appearing, Well-nourished, elevated BP noted, appears quite anxious and tremulous Skin: Warm, dry, no obvious rash Eyes: sclera anicteric, no conjunctival pallor ENT: mucous membranes moist, pharynx appears normal Neck: Supple, nontender Respiratory: Clear to auscultation, no signs of respiratory distress Cardiovascular: Normal S1, S2. No murmurs. Normal distal pulses in tibial and radial bilaterally. Abdomen: Soft, nontender, normal active bowel sounds present Musculoskeletal: Normal, Strength/ROM Intact Neurological: A&Ox3, awake and alert, mentation is normal, speech is fluent and appropriate Psychiatric: affect is normal, appears quite anxious and tremulous Triage Information Reviewed: Yes Vital Signs On Initial Exam: Initial Vitals Temp Pulse Resp BP Pulse Ox 97.3 F 96 20 172/122 97 09/14/18 23:53 09/14/18 23:53 09/14/18 23:53 09/14/18 23:53 09/14/18 23:53 Vital Signs Reviewed: Yes Diagnostics - Vital Signs Vital Signs Temp Pulse Resp BP Pulse Ox 09/15/18 00:09 91 17 181/111 98 09/15/18 00:04 81 97 09/14/18 23:53 97.3 F 96 20 172/122 97 - Laboratory Result Diagrams: 09/15/18 00:28 09/15/18 04:26 Lab Statement: Any lab studies that have been ordered have been reviewed, and results considered in the medical decision making process. - EKG 0019 Cardiac Rate: NL - 88bpm EKG Rhythm: Sinus Rhythm ST Segment: Normal Ectopy: None Summary of EKG Findings: EKG at 0019 shows NSR at 88 BPM, P waves, QRS complex, and T waves are within normal limits, T waves and intervals are normal, no ischemic changes. This is a normal EKG. Course/Dx - Course Course Of Treatment: Pt is a 53 y/o M presenting to the ED with a chief complaint of alcohol withdrawal. He states he binge drank for about 9-10 days, and stopped on 09/14 at around 2200. He currently reports feeling very anxious and scared, as well as shakey. He denies any abd pain or chest pain. He has hx of HTN, which he takes medication for, as well as hx of anxiety. On exam, the pt appears very anxious and tremulous. His elevated BP is noted. EKG at 0019 shows NSR at 88 BPM, P waves, QRS complex, and T waves are within normal limits , T waves and intervals are normal, no ischemic changes. This is a normal EKG. Pts hematology shows Hct of 41, and Plt count of 137. His chemistry shows Sodium of 124, Chloride of 82, Anion Gap of 17, BUN/Creatinine ratio of 7.1, and AST of 43. His urine shows specific gravity of 1.002, 1+ blood, and 1+ glucose. His serum alcohol is 203. His second BMP shows Sodium of 132, Potassium of 3.3, Chloride of 93, Anion Gap of 14, BUN of 5, and a BUN/ Creatinine ratio of 6.1. Pt will be sent home with dx including alcohol intoxication, hyponatremia, hypokalemia, and alcoholic gastritis. - Diagnoses Provider Diagnoses: Alcohol intoxication, Hyponatremia, Hypokalemia, Alcoholic gastritis Discharge - Sign-Out/Discharge Documenting (check all that apply): Patient Departure Patient Received Moderate/Deep Sedation with Procedure: No - Discharge Plan Condition: Good Disposition: HOME Prescriptions: ALPRAZolam TAB* [Xanax TAB*] 0.25 mg PO Q6H PRN #15 tab MDD 4 PRN Reason: Anxiety - Severe Ondansetron ODT TAB* [Zofran 4 MG Odt TAB*] 8 mg PO Q6H PRN #12 tab.odt PRN Reason: Nausea Patient Education Materials: Gastritis (ED), Abuse of Alcohol (ED) Referrals: [facility] [Outside] Jatinder Smith NP [Primary Care Provider] - Additional Instructions: The [facility] have a good program where you can walk in and meet with someone who is knowledgeable and can help you to get into an appropriate program to address your alcohol addiction, as well as your anxiety. I have prescribed a limited supply of the xanax; it is important not to take this with alcohol. If you do start to develop bad withdrawal symptoms in the interim you can always return here for help. - Billing Disposition and Condition Condition: GOOD Disposition: Home - Attestation Statements Document Initiated by Scribe: Yes Documenting Scribe: Danyell Schaeffer Provider For Whom Saigeibe is Documenting (Include Credential): Delroy Baptiste MD. Scribe Attestation: Danyell Alicea, jose migueled for Delroy Baptiste MD. on 09/15/18 at 0626. Scribe Documentation Reviewed: Yes Provider Attestation: The documentation as recorded by the scribe, Danyell Schaeffer accurately reflects the service I personally performed and the decisions made by me, Delroy Baptiste MD. Status of Scribe Document: Viewed
[2018-09-15 00:39] LABS: Hematocrit 41 % (42-52); Hemoglobin 14.2 g/dL (14.0-18.0); Mean Corpuscular HGB Conc 34 g/dL (31-36); Mean Corpuscular Hemoglobin 31 pg (27-31); Mean Corpuscular Volume 90 fL (80-94); Mean Platelet Volume 9.3 fL (7.4-10.4); Platelet Count 137 10^3/uL (150-450); Red Blood Count 4.58 10^6 /uL (4.18-5.48); Red Cell Distribution Width 14 % (10-15); White Blood Count 5.5 10^3/uL (3.5-10.8)
[2018-09-15 00:46] LABS: Urine Appearance Clear; Urine Bacteria Absent (Absent); Urine Bilirubin Negative (Negative); Urine Blood 1+ (Negative); Urine Color Yellow; Urine Glucose 1+(50 mg/dL) (Negative); Urine Ketones Negative (Negative); Urine Nitrite Negative (Negative); Urine Protein Negative (Negative); Urine Red Blood Cell Trace(0-2/hpf) (Absent); Urine Specific Gravity 1.002 (1.010-1.030); Urine Urobilinogen Negative (Negative); Urine White Blood Cell Absent (Absent)
[2018-09-15 00:52] LABS: Albumin 4.7 g/dL (3.2-5.2); Albumin/Globulin Ratio 1.3 (1-3); BUN/Creatinine Ratio 7.1 (8-20); Calcium 9.6 mg/dL (8.6-10.3); Globulin 3.6 g/dL (2-4); Potassium 3.7 mmol/L (3.5-5.0); Total Bilirubin 0.6 mg/dL (0.2-1.0); Total Protein 8.3 g/dL (6.4-8.9)
[2018-09-15 00:56] LABS: Urine Benzodiazepine Screen None Detected (None Detect); Urine Opiates Screen None Detected (None Detect)
[2018-09-15 01:14] LABS: TSH (Thyroid Stimulating Horm) 1.65 mcIU/mL (0.34-5.60)
[2018-09-15] MEDS ORDERED: Ondansetron INJ* 2 MG/ML VIAL IV ONE (01:17)
[2018-09-15 01:31] LABS: ABS Basophils 0.1 10^3/ul (0-0.2); ABS Lymphocytes 2.4 10^3/ul (1.0-4.8); ABS Monocytes 0.4 10^3/ul (0-0.8); ABS Neutrophils 2.7 10^3/ul (1.5-7.7); Eosinophil % 0.3 %; Lymphocyte % 43.8 %; Nucleated Red Blood Cells % 0.2
[2018-09-15 01:32] LABS: Large Platelets Present
[2018-09-15] MEDS ORDERED: NS 0.9% 1000 ML** 2,000 ML IV ONE (01:38)
[2018-09-15] MEDS ORDERED: chlordiazePOXIDE CAP* 25 MG PO ONE (02:34)
[2018-09-15 04:50] LABS: BUN/Creatinine Ratio 6.1 (8-20); Calcium 8.8 mg/dL (8.6-10.3); EGFR African American 119.9 (>60); EGFR Non-African American 99.1 (>60); Potassium 3.3 mmol/L (3.5-5.0)
[2018-09-15] MEDS ORDERED: Potassium Chlor TAB* 20 MEQ TAB.ER PO ONE (04:57)
[2018-09-15 06:18] VITALS: BP 141/104
== END 2018-09-15 06:15 | disposition home or self-care (01) ==
LOC: ED 23:52
DX: F10.129 Alcohol abuse with intoxication, unspecified (principal); Y90.7 Blood alcohol level of 200-239 mg/100 ml; E87.1 Hypo-osmolality and hyponatremia; E87.6 Hypokalemia; K29.20 Alcoholic gastritis without bleeding; I10 Essential (primary) hypertension; F41.9 Anxiety disorder, unspecified; Z79.899 Other long term (current) drug therapy; Z90.81 Acquired absence of spleen; Z88.0 Allergy status to penicillin
CPT/HCPCS: 36415; 80048; 80053; 80307; 80320; 81003; 81015; 84443; 85025; 93005; 96361; 96374; 99285; A9270-GY; G0480; J2405

== ENCOUNTER 2018-10-13 21:30 | Emergency (ER) | payer MEDICARE, MEDICAID ==
--- OUTSIDE RECORDS SUMMARY | 2018-10-13 21:45 | XMS REPORT | Continuity of Care Document ---
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 7-52 Ast 51 U/L High 13-39 Egfr Non- 80.3 N >60 Egfr 103.3 N >60 114 Lipid Profile 09/01/2016 [facility] Triglycerides 88 mg/dL N 115 (Trig/Chol/HDL) [address] [place] [address] [phone] Cholesterol 193 mg/dL N 116 HDL Cholesterol 46.5 mg/dL N 117 LDL Cholesterol 129 mg/dL N 118 THC Confirmation 09/01/2016 [facility] Urine Carboxy >500.0 ng/ mL N [address] THC Confirm [place], [place] [id number] [phone] Urine THC Interpretation Positive. N 120 Basic Metabolic Panel 09/01/2016 [facility] Sodium 135 mmol/L N 133-[address] [place] [address] [phone] Potassium 3.7 mmol/L N 3.5-5.0 Chloride 100 mmol/L Low 101-111 Co2 Carbon Dioxide 30 mmol/L N 22-32 Anion Gap 5 mmol/L N 2-11 Glucose 103 mg/dL High 70-100 Blood Urea Nitrogen 12 mg/dL N 6-24 Creatinine 1.05 mg/dL N 0.67-1.17 BUN/Creatinine Ratio 11.4 N 8-20 Calcium 9.4 mg/dL N 8.6-10.3 Egfr Non- 75.1 N >60 Egfr 96.5 N >60 121 Benzodiazepine 09/01/2016 [facility] Urine Negative N 122 Confirm Urine [address] Lorazepam ng/[place] [address] GC/MS [phone] Urine Nordiazepam GC/MS Negative ng/mL N 123 Urine Oxazepam GC/MS Negative ng/mL N 124 Urine Temazepam GC/MS Negative ng/mL N 125 Ur Oh Ethyl Flurazepam GC/MS Negative ng/mL N 126 Ur 7 NH Clonazepam GC/MS Negative ng/mL N 127 Ur 7 NH Flunitrazepam GC/MS Negative ng/mL N Cutoff: 50 Ur Alpha Oh Alprazolam GC/MS 266 ng/mL N 128 Ur Alpha Oh Triazolam GC/MS Negative ng/mL N 129 Ur Benzodiazepine Interp Positive. N 130 Laboratory test 09/01/2016 [facility] PSA Screening 0.599 ng/mL N 0-4.000 [address] [place] [address] [phone] Drug Abuse 20 09/01/2016 [facility] Urine Negative N [address] Amphetamine ng/[place] [address] [phone] Urine Barbiturates Negative ng/mL N 133 Urine Benzodiazepines Presumptive Posi <SEE NOTE> ng/mL N 134 Urine Cocaine Negative ng/mL N 135 Urine Phencyclidine Negative ng/mL N Cutoff: 25 Urine Tetrahydrocannabinol Presumptive Posi <SEE NOTE> ng/mL N Cutoff: 50 136 Creatinine, Urine 200.1 mg/dL N Specific [place] 1.014 N pH 5.9 N Oxidants Negative N 137 Adulterants Comment Normal N Codeine, Ur Not Detected ng/mL N Cutoff: 25 138 Mnmjwvj-6-drzw-glucuronide, Ur Not Detected ng/mL N 139 Morphine, Ur Not Detected ng/mL N Cutoff: 25 140 Tmvulbez-7-srct-glucuronide, U Not Detected ng/mL N 141 6-monoacetylmorphine, Ur Not Detected ng/mL N Cutoff: 25 142 Hydrocodone, Ur Not Detected ng/mL N Cutoff: 25 143 Norhydrocodone, Ur Not Detected ng/mL N Cutoff: 25 144 Dihydrocodeine, Ur Not Detected ng/mL N Cutoff: 25 145 Hydromorphone, Ur Not Detected ng/mL N Cutoff: 25 146 Nkeqsywguohwu4apdwukdwodhmcsr Not Detected ng/mL N 147 Oxycodone, Ur Not Detected ng/mL N Cutoff: 25 148 Noroxycodone, Ur Not Detected ng/mL N Cutoff: 25 149 Oxymorphone, Ur Not Detected ng/mL N Cutoff: 25 150 Yndccxmanhd-5-gnxa-glucuronide Not Detected ng/mL N 151 Noroxymorphone, Ur Not Detected ng/mL N Cutoff: 25 152 Fentanyl, Ur Not Detected ng/mL N Cutoff: 2 153 Norfentanyl, Ur Not Detected ng/mL N Cutoff: 2 154 Meperidine, Ur Not Detected ng/mL N Cutoff: 25 155 Normeperidine, Ur Not Detected ng/mL N Cutoff: 25 156 Naloxone, Ur Not Detected ng/mL N Cutoff: 25 157 Szhpodom-0-mjdx-glucuronide, U Not Detected ng/mL N 158 Methadone, Ur Not Detected ng/mL N Cutoff: 25 159 Eddp, Ur Not Detected ng/mL N Cutoff: 25 160 Propoxyphene, Ur Not Detected ng/mL N Cutoff: 25 161 Norpropoxyphene, Ur Not Detected ng/mL N Cutoff: 25 162 Tramadol, Ur Not Detected ng/mL N Cutoff: 25 163 O-desmethyltramadol, Ur Not Detected ng/mL N Cutoff: 25 164 Tapentadol, Ur Not Detected ng/mL N Cutoff: 25 165 N-desmethyltapentadol, Ur Not Detected ng/mL N Cutoff: 50 166 Mlhmqucsdy-qecx-dclquvwcgue, U Not Detected ng/mL N 167 Buprenorphine, Ur Not Detected ng/mL N Cutoff: 5 168 Norbuprenorphine, Ur Not Detected ng/mL N Cutoff: 5 169 Norbuprenorphine glucuronide Not Detected ng/mL N Cutoff: 20 170 Opioid Interpretation See Comment N 171 Laboratory test finding 08/04/2016 [facility] Lipase 50 U/L N 11.0-82.[address] [place] [address] [phone] C Reactive Protein 4.90 mg/L N < 5.00 172 Lactic Acid 0.6 mmol/L N 0.5-2.0 173 CBC Auto Diff 08/04/2016 [facility] White Blood 8.4 10^3/uL N 3.5-10.[address] [place] [address] [phone] Red Blood Count 4.83 10^6/uL N 4.0-5.4 Hemoglobin 14.8 g/dL N 14.0-18.0 Hematocrit 44 % N 42-52 Mean Corpuscular Volume 91 fL N 80-94 Mean Corpuscular Hemoglobin 31 pg N 27-31 Mean Corpuscular HGB Conc 34 g/dL N 31-36 Red Cell Distribution Width 15 % N 10.5-15 Platelet Count 203 10^3/uL N 150-450 Mean Platelet Volume 10 um3 N 7.4-10.4 Abs Neutrophils 4.7 10^3/uL N 1.5-7.7 Abs Lymphocytes 2.3 10^3/uL N 1.0-4.8 Abs Monocytes 0.9 10^3/uL High 0-0.8 Abs Eosinophils 0.5 10^3/uL N 0-0.6 Abs Basophils 0.1 10^3/uL N 0-0.2 Abs Nucleated RBC 0.01 10^3/uL N Granulocyte % 55.8 % N 38-83 Lymphocyte % 27.5 % N 25-47 Monocyte % 10.6 % High 1-9 Eosinophil % 5.4 % N 0-6 Basophil % 0.7 % N 0-2 Nucleated Red Blood Cells % 0.1 N Urinalysis Profile 08/04/2016 [facility] Urine Color Yellow N [address] [place] [address] [phone] Urine Appearance Clear N Urine Specific [place] 1.017 N 1.010-1.030 Urine pH 6.0 N 5-9 Urine Urobilinogen Negative N Negative Urine Ketones Negative N Negative Urine Protein 1+(30 mg/dL) Abnormal Negative Urine Leukocytes Negative N Negative Urine Blood Negative N Negative Urine Nitrite Negative N Negative Urine Bilirubin Negative N Negative Urine Glucose 1+(50 mg/dL) Abnormal Negative Urine White Blood Cell Absent N Absent Urine Red Blood Cell 1+(3-5/hpf) Abnormal Absent Urine Bacteria Absent N Absent Urine Squamous Epithelial Cell Present Abnormal Absent Comp Metabolic Panel 08/04/2016 [facility] Sodium 133 mmol/L N 133-145 [address] [place] [address] [phone] Potassium 3.5 mmol/L N 3.5-5.0 Chloride 93 mmol/L Low 101-111 Co2 Carbon Dioxide 32 mmol/L N 22-32 Anion Gap 8 mmol/L N 2-11 Glucose 114 mg/dL High 70-100 Blood Urea Nitrogen 12 mg/dL N 6-24 Creatinine 1.05 mg/dL N 0.67-1.17 BUN/Creatinine Ratio 11.4 N 8-20 Calcium 10.0 mg/dL N 8.6-10.3 Total Protein 7.9 g/dL N 6.4-8.9 Albumin 4.5 g/dL N 3.2-5.2 Globulin 3.4 g/dL N 2-4 Albumin/Globulin Ratio 1.3 N 1-3 Total Bilirubin 1.10 mg/dL High 0.2-1.0 Alkaline Phosphatase 48 U/L N 34-104 Alt 46 U/L N 7-52 Ast 66 U/L High 13-39 Egfr Non- 75.1 N >60 Egfr 96.5 N >60 174 GC/Chlamydia 08/04/2016 [facility] Chlamydia Negative N Negative Amplified Rna [address] [address] [phone] Neisseria gonorrhoeae (GC) Rna Negative N Negative Urine Culture And 06/30/2016 [facility] Urine SEE RESULT [address] [place] [address] [phone] Poc Urinalysis 06/30/2016 [facility] Poc Negative N Negative [address] Glucose, [place] [address] Urine [phone] Poc Bilirubin, Urine Negative N Negative Poc Ketone, Urine Negative N Negative Poc Specific [place], Urine 1.010 N 1.010-1.030 Poc Blood, Urine Negative N Negative Poc pH, Urine 5.5 N 5-9 Poc Protein, Urine Negative N Negative Poc Urobilinogen, Urine 0.2 N Negative Poc Nitrite, Urine Negative N Negative Poc Leukocytes, Urine Negative N Negative Poc Color, Urine Yellow N Poc Clarity, Urine Clear N 176 Drug Abuse 08/30/2015 [facility] Urine Amphetamine Negative ng/ mL N 177 [address] [place] [address] [phone] Urine Barbiturates Negative ng/mL N 178 Urine Benzodiazepines Negative ng/mL N 179 Urine Cocaine Negative ng/mL N 180 Urine Methadone Negative ng/mL N 181 Urine Opiates Negative ng/mL N 182 Urine Phencyclidine Negative ng/mL N Cutoff: 25 Urine Tetrahydrocannabinol Presumptive Posi <SEE NOTE> ng/mL N Cutoff: 50 183 Urine Oxycodone Negative ng/mL N 184 THC Confirmation 08/30/2015 [facility] Urine Carboxy 103 ng/mL N [address] [place] [address] [phone] Urine THC Interpretation Positive. N 186 1 Because ethnic data is not always readily available, this report includes an eGFR for both -Americans and non- Americans. The National Kidney Disease Education Program (NKDEP) does not endorse the use of the MDRD equation for patients that are not between the ages of 18 and 70, are , have extremes of body size, muscle mass, or nutritional status, or are non- or non-. According to the National Kidney Foundation, irrespective of diagnosis, the stage of the disease is based on the level of kidney function: Stage Description GFR(mL/min/1.73 m(2)) 1 Kidney damage with normal or decreased GFR 90 2 Kidney damage with mild decrease in GFR 60-89 3 Moderate decrease in GFR 30-59 4 Severe decrease in GFR 15-29 5 Kidney failure <15 (or dialysis) 2 The urine specimen was tested at the listed cutoffs: Drug class test level (ng/mL) Amphetamines 500 Barbiturates 200 Benzodiazepine metabolites 200 Cocaine metabolites 150 Cannabinoids 50 Opiates 300 Pcp 25 Specimen was received without chain of custody. Results should be used for medical purposes only. 3 Because ethnic data is not always readily available, this report includes an eGFR for both -Americans and non- Americans. The National Kidney Disease Education Program (NKDEP) does not endorse the use of the MDRD equation for patients that are not between the ages of 18 and 70, are , have extremes of body size, muscle mass, or nutritional status, or are non- or non-. According to the National Kidney Foundation, irrespective of diagnosis, the stage of the disease is based on the level of kidney function: Stage Description GFR(mL/min/1.73 m(2)) 1 Kidney damage with normal or decreased GFR 90 2 Kidney damage with mild decrease in GFR 60-89 3 Moderate decrease in GFR 30-59 4 Severe decrease in GFR 15-29 5 Kidney failure <15 (or dialysis) 4 REFERENCE VALUE Cutoff: 100 5 REFERENCE VALUE Cutoff: 100 6 REFERENCE VALUE Cutoff: 100 7 REFERENCE VALUE Cutoff: 100 8 REFERENCE VALUE Cutoff: 100 9 REFERENCE VALUE Cutoff: 100 10 REFERENCE VALUE Cutoff: 100 11 REFERENCE VALUE Cutoff: 100 12 ADDITIONAL INFORMATION This report is intended for use in clinical monitoring and management of patients. It is not intended for use in employment-related testing. This test was developed and its performance characteristics determined by [facility] in a manner consistent with CLIA requirements. This test has not been cleared or approved by the U.S. Food and Drug Administration. Test Performed by: [facility] [address] [place] [address] 13 REFERENCE VALUE Cutoff: 500 14 REFERENCE VALUE Cutoff: 200 15 Presumptive Positive Drug confirmation to follow. Presumptive Positive means that the screening method is positive, but the test needs to be run by a confirmatory method before being finalized. REFERENCE VALUE Cutoff: 100 16 REFERENCE VALUE Cutoff: 150 17 Presumptive Positive Drug confirmation to follow. Presumptive Positive means that the screening method is positive, but the test needs to be run by a confirmatory method before being finalized. ADDITIONAL INFORMATION This report is intended for use in clinical monitoring or management of patients. It is not intended for use in employment-related testing. 18 REFERENCE VALUE Cutoff: 200 mg/L 19 Tylenol 3 20 Metabolite of codeine REFERENCE VALUE Cutoff: 100 21 Evelin Flores MS Contin; Also a minor metabolite (10%) of codeine and can be seen in low concentrations (<2,000 ng/mL) with poppy seed ingestion. 22 Metabolite of morphine REFERENCE VALUE Cutoff: 100 23 Metabolite of heroin 24 Lortab, [place], Vicodin; Also a very minor metabolite of codeine and impurity (<1%) of oxycodone. 25 Metabolite of hydrocodone 26 Metabolite of hydrocodone 27 Dilaudid, Exalgo; Also a metabolite of hydrocodone and a minor (<5%) metabolite of morphine. 28 Metabolite of hydromorphone REFERENCE VALUE Cutoff: 100 29 Endocet, Percocet, Oxycontin 30 Metabolite of oxycodone 31 Numorphan, Opana; Also a metabolite of oxycodone. 32 Metabolite of oxymorphone REFERENCE VALUE Cutoff: 100 33 Metabolite of oxymorphone 34 Actiq, Duragesic, [place] 35 Metabolite of fentanyl 36 Demerol 37 Metabolite of meperidine 38 Narcan 39 Metabolite of naloxone REFERENCE VALUE Cutoff: 100 40 Dolophine 41 Metabolite of methadone 42 Darvon, Darvocet 43 Metabolite of propoxyphene 44 Tradol, Ultram, Ultracet 45 Metabolite of tramadol 46 Nucynta 47 Metabolite of tapentadol 48 Metabolite of tapentadol REFERENCE VALUE Cutoff: 100 49 Buprenex, Suboxone 50 Metabolite of buprenorphine 51 Metabolite of buprenorphine 52 No opioids were detected. The absence of expected drug(s) and/or drug metabolite(s) may indicate non-compliance, altered pharmacokinetics, inappropriate timing of specimen collection relative to drug administration, diluted/adulterated urine, or limitations of testing. ADDITIONAL INFORMATION This test was developed and its performance characteristics determined by [facility] in a manner consistent with CLIA requirements. This test has not been cleared or approved by the U.S. Food and Drug Administration. Test Performed by: [facility] - [address] [address] 53 REFERENCE VALUE Cutoff: 3.0 54 ADDITIONAL INFORMATION This report is intended for use in clinical monitoring and management of patients. It is not intended for use in employment-related testing. This test was developed and its performance characteristics determined by [facility] in a manner consistent with CLIA requirements. This test has not been cleared or approved by the U.S. Food and Drug Administration. Test Performed by: [facility] - [address] [address] 55 Please note: The following may produce a false positive D Dimer test: - Rheumatoid factor greater than 60 IU/ml - Plasma hemoglobin greater than 0.05 gm/dl - Bilirubin greater than 50 mg/dl - Lipids greater than 1000 mg/dl - FDP greater than 20 ug/ml 56 Troponin-I testing on Plasma Separator Tubes (PST) has a known false positive rate of 0.20-0.40%. All positive troponins reflex immediate secondary confirmatory testing. 57 REFERENCE VALUE Cutoff: 500 58 REFERENCE VALUE Cutoff: 200 59 REFERENCE VALUE Cutoff: 100 60 REFERENCE VALUE Cutoff: 150 61 Presumptive Positive Drug confirmation to follow. Presumptive Positive means that the screening method is positive, but the test needs to be run by a confirmatory method before being finalized. ADDITIONAL INFORMATION This report is intended for use in clinical monitoring or management of patients. It is not intended for use in employment-related testing. 62 REFERENCE VALUE Cutoff: 200 mg/L 63 Tylenol 3 64 Metabolite of codeine REFERENCE VALUE Cutoff: 100 65 Evelin Flores MS Contin; Also a minor metabolite (10%) of codeine and can be seen in low concentrations (<2,000 ng/mL) with poppy seed ingestion. 66 Metabolite of morphine REFERENCE VALUE Cutoff: 100 67 Metabolite of heroin 68 Lortab, [place], Vicodin; Also a very minor metabolite of codeine and impurity (<1%) of oxycodone. 69 Metabolite of hydrocodone 70 Metabolite of hydrocodone 71 Dilaudid, Exalgo; Also a metabolite of hydrocodone and a minor (<5%) metabolite of morphine. 72 Metabolite of hydromorphone REFERENCE VALUE Cutoff: 100 73 Endocet, Percocet, Oxycontin 74 Metabolite of oxycodone 75 Numorphan, Opana; Also a metabolite of oxycodone. 76 Metabolite of oxymorphone REFERENCE VALUE Cutoff: 100 77 Metabolite of oxymorphone 78 Actiq, Duragesic, [place] 79 Metabolite of fentanyl 80 Demerol 81 Metabolite of meperidine 82 Narcan 83 Metabolite of naloxone REFERENCE VALUE Cutoff: 100 84 Dolophine 85 Metabolite of methadone 86 Darvon, Darvocet 87 Metabolite of propoxyphene 88 Tradol, Ultram, Ultracet 89 Metabolite of tramadol 90 Nucynta 91 Metabolite of tapentadol 92 Metabolite of tapentadol REFERENCE VALUE Cutoff: 100 93 Buprenex, Suboxone 94 Metabolite of buprenorphine 95 Metabolite of buprenorphine 96 No opioids were detected. The absence of expected drug(s) and/or drug metabolite(s) may indicate non-compliance, altered pharmacokinetics, inappropriate timing of specimen collection relative to drug administration, diluted/adulterated urine, or limitations of testing. ADDITIONAL INFORMATION This test was developed and its performance characteristics determined by [facility] in a manner consistent with CLIA requirements. This test has not been cleared or approved by the U.S. Food and Drug Administration. Test Performed by: [facility] [address] [place] [address] 97 REFERENCE VALUE Cutoff: 3.0 98 ADDITIONAL INFORMATION This report is intended for use in clinical monitoring and management of patients. It is not intended for use in employment-related testing. This test was developed and its performance characteristics determined by [facility] in a manner consistent with CLIA requirements. This test has not been cleared or approved by the U.S. Food and Drug Administration. Test Performed by: [facility] [address] [place] [address] 99 SEE RESULT BELOW Name: EARLE MENON : [address]: Naomi Marinelli MD Acct: [id number] Unit: [id number] AGE: 52 Location: [place] [address] Re10/27/17 Dis: 10/28/17 SEX: M Status: DIS Cristóbal SPEC: [id number] FARSHAD: 10/27/17-[address]: Wilmer Montelongo MD REQ: [id number] RECD: 10/27/17 STATUS: KARRI BROCK DR: Amrit Smith WORM PACKER _ SOURCE: URINE SPDESC: ORDERED: Urine Culture Procedure Result Reported Site Urine Culture Final 10/29/17- 825 ML No Growth (<1,000 CFU/mL) * ML - Main Lab . END OF REPORT DEPARTMENT OF PATHOLOGY, [address] [place] [address] Lico Butterfield M.D. Director [facility] # [id number] [address] [place] [address] Severe Sepsis and Septic Shock Management Bundle Measure requires all lactic acids initially measuring >2.0 mmol/L be repeated. 101 Because ethnic data is not always readily available, this report includes an eGFR for both -Americans and non- Americans. The National Kidney Disease Education Program (NKDEP) does not endorse the use of the MDRD equation for patients that are not between the ages of 18 and 70, are , have extremes of body size, muscle mass, or nutritional status, or are non- or non-. According to the National Kidney Foundation, irrespective of diagnosis, the stage of the disease is based on the level of kidney function: Stage Description GFR(mL/min/1.73 m(2)) 1 Kidney damage with normal or decreased GFR 90 2 Kidney damage with mild decrease in GFR 60-89 3 Moderate decrease in GFR 30-59 4 Severe decrease in GFR 15-29 5 Kidney failure <15 (or dialysis) 102 Presumptive Positive Presumptive positive results are unconfirmed. 103 Presumptive Positive Presumptive positive results are unconfirmed. 104 The urine specimen was tested at the listed cutoffs: Drug class test level (ng/mL) Amphetamines 500 Barbiturates 200 Benzodiazepine metabolites 200 Cocaine metabolites 150 Cannabinoids 50 Opiates 300 Pcp 25 Specimen was received without chain of custody. Results should be used for medical purposes only. 105 Test Performed by: [address] [address] 106 Because ethnic data is not always readily available, this report includes an eGFR for both -Americans and non- Americans. The National Kidney Disease Education Program (NKDEP) does not endorse the use of the MDRD equation for patients that are not between the ages of 18 and 70, are , have extremes of body size, muscle mass, or nutritional status, or are non- or non-. According to the National Kidney Foundation, irrespective of diagnosis, the stage of the disease is based on the level of kidney function: Stage Description GFR(mL/min/1.73 m(2)) 1 Kidney damage with normal or decreased GFR 90 2 Kidney damage with mild decrease in GFR 60-89 3 Moderate decrease in GFR 30-59 4 Severe decrease in GFR 15-29 5 Kidney failure <15 (or dialysis) 107 Normal Range 180 to 914 Indeterminate Range 145 to 180 Deficient Range <145 108 Serologic response to B. burgdorferi infection is not detected, but cannot rule out early infection during which low or undetectable antibody levels to B. burgdorferi may be present. If clinically indicated, a new serum specimen should be submitted in 7-14 days. Test Performed by: [facility] [address] [place] [address] 109 Acute inflammation: >10.00 110 REFERENCE VALUE <=1.0 (Negative) 111 REFERENCE VALUE <20.0 (Negative) 112 Tests for antibodies to dsDNA and SUZANNE antigens are not performed automatically unless the MARYLOU result is > or= 3.0 U. Studies performed at [facility] indicate that positive MARYLOU results <3.0 U are rarely accompanied by positive second order tests. Test Performed by: [place] [address] 113 <1:80 (Negative) REFERENCE VALUE <1:80 (Negative) Test Performed by: [place] [address] 114 Because ethnic data is not always readily available, this report includes an eGFR for both -Americans and non- Americans. The National Kidney Disease Education Program (NKDEP) does not endorse the use of the MDRD equation for patients that are not between the ages of 18 and 70, are , have extremes of body size, muscle mass, or nutritional status, or are non- or non-. According to the National Kidney Foundation, irrespective of diagnosis, the stage of the disease is based on the level of kidney function: Stage Description GFR(mL/min/1.73 m(2)) 1 Kidney damage with normal or decreased GFR 90 2 Kidney damage with mild decrease in GFR 60-89 3 Moderate decrease in GFR 30-59 4 Severe decrease in GFR 15-29 5 Kidney failure <15 (or dialysis) 115 Desirable <150 Borderline high 150-199 High 200-499 Very High >500 116 Desirable <200 Borderline high 200-239 High >239 117 Low <40 Desirable: 40-60 High: >60 118 Desirable: <100 mg/dL Near Optimal: 100-129 mg/dL Borderline High: 130-159 mg/dL High: 160-189 mg/dL Very High: >189 mg/dL 119 REFERENCE VALUE Cutoff: 3.0 120 ADDITIONAL INFORMATION This report is intended for use in clinical monitoring and management of patients. It is not intended for use in employment-related testing. This test was developed and its performance characteristics determined by [facility] in a manner consistent with CLIA requirements. This test has not been cleared or approved by the U.S. Food and Drug Administration. Test Performed by: [address] [address] Because ethnic data is not always readily available, this report includes an eGFR for both -Americans and non- Americans. The National Kidney Disease Education Program (NKDEP) does not endorse the use of the MDRD equation for patients that are not between the ages of 18 and 70, are , have extremes of body size, muscle mass, or nutritional status, or are non- or non-. According to the National Kidney Foundation, irrespective of diagnosis, the stage of the disease is based on the level of kidney function: Stage Description GFR(mL/min/1.73 m(2)) 1 Kidney damage with normal or decreased GFR 90 2 Kidney damage with mild decrease in GFR 60-89 3 Moderate decrease in GFR 30-59 4 Severe decrease in GFR 15-29 5 Kidney failure <15 (or dialysis) 122 REFERENCE VALUE Cutoff: 100 123 REFERENCE VALUE Cutoff: 100 124 REFERENCE VALUE Cutoff: 100 125 REFERENCE VALUE Cutoff: 100 126 REFERENCE VALUE Cutoff: 100 127 REFERENCE VALUE Cutoff: 100 128 REFERENCE VALUE Cutoff: 100 129 REFERENCE VALUE Cutoff: 100 130 ADDITIONAL INFORMATION This report is intended for use in clinical monitoring and management of patients. It is not intended for use in employment-related testing. This test was developed and its performance characteristics determined by [facility] in a manner consistent with CLIA requirements. This test has not been cleared or approved by the U.S. Food and Drug Administration. Test Performed by: [facility] - [address] [address] 131 Serum levels of PSA measured using the [employer] [place] DXI Hybritech immunoassay should not be interpreted as absolute evidence of the presence or absence of disease. The PSA value should be used in conjunction with other pertinent clinical diagnostic procedures. A PSA value in the range of 0.1 to 0.6 ng/ml is indeterminate if being used as an indicator of recurrent or residual disease. The values obtained with different assay methods or kits cannot be used interchangeably. 132 REFERENCE VALUE Cutoff: 500 133 REFERENCE VALUE Cutoff: 200 134 Presumptive Positive Drug confirmation to follow. Presumptive Positive means that the screening method is positive, but the test needs to be run by a confirmatory method before being finalized. REFERENCE VALUE Cutoff: 100 135 REFERENCE VALUE Cutoff: 150 136 Presumptive Positive Drug confirmation to follow. Presumptive Positive means that the screening method is positive, but the test needs to be run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
--- NOTE | 2018-10-14 01:51 | ED ---
Head Injury - HPI Summary HPI Summary: 53 year old male presents with head injury for the couple days ago. He states that he slipped backwards and struck his head and neck on the stair. He states that he has been having worsening headache for the past couple days. He was not able to his neck until yesterday and now has full range of motion of his neck. He denies any numbness tingling. No change in vision. Admits to photophobia. admits to some difficulty concentrating. Has a history of concussion. No other medical conditions. No other injury. - History Of Current Complaint Chief Complaint: EDHeadInjury Stated Complaint: HEAD INJURY PER PT Time Seen by Provider: 10/14/18 00:39 Pain Intensity: 9 - Allergies/Home Medications Allergies/Adverse Reactions: Allergies Allergy/AdvReac Type Severity Reaction Status Date / Time amoxicillin Allergy Hives Verified 10/13/18 21:35 PMH/Surg Hx/FS Hx/Imm Hx Endocrine/Hematology History: Denies: Hx Anticoagulant Therapy, Hx Blood Disorders, Hx Diabetes, Hx Thyroid Disease Cardiovascular History: Reports: Hx Hypertension - X 7-10 YEARS TAKES RX ( propranolol, HCTZ) Respiratory History: Denies: Hx Asthma, Hx Chronic Obstructive Pulmonary Disease (COPD), Hx Seasonal Allergies GI History: Reports: Hx Gastroesophageal Reflux Disease Denies: Hx Ulcer History: Denies: Hx Renal Disease Musculoskeletal History: Reports: Hx Back Problems Denies: Hx Rheumatoid Arthritis Sensory History: Denies: Hx Contacts or Glasses, Hx Hearing Aid Opthamlomology History: Denies: Hx Contacts or Glasses Neurological History: Reports: Hx Spinal Cord Injury Psychiatric History: Reports: Hx Anxiety - xanax - Surgical History Surgery Procedure, Year, and Place: 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 Infectious Disease History: No Infectious Disease History: Denies: Hx Hepatitis, Hx Human Immunodeficiency Virus (HIV), Traveled Outside the [place] in Last 30 Days - Family History Known Family History: Positive: Hypertension - Social History Alcohol Use: None Hx Substance Use: Yes Substance Use Type: Reports: Marijuana Hx Tobacco Use: No Smoking Status (MU): Never Smoked Tobacco Have You Smoked in the Last Year: Yes - marijuana Review of Systems Negative: Fever Negative: Chest Pain Negative: Shortness Of Breath Positive: Myalgia - neck pain Positive: Headache All Other Systems Reviewed And Are Negative: Yes Physical Exam Triage Information Reviewed: Yes Vital Signs On Initial Exam: Initial Vitals Temp Pulse Resp BP Pulse Ox 98.5 F 81 15 155/108 98 10/13/18 21:33 10/13/18 21:33 10/13/18 21:33 10/13/18 21:33 10/13/18 21:33 Vital Signs Reviewed: Yes Appearance: Positive: Well-Appearing Skin: Positive: Warm, Dry Head/Face: Positive: Normal Head/Face Inspection Eyes: Positive: Normal, EOMI, DEIRDRE, Conjunctiva Clear ENT: Positive: Normal ENT inspection, Pharynx normal, TMs normal Neck: Positive: Other: - contusion to posterior head, tendereness neck Respiratory/Lung Sounds: Positive: Clear to Auscultation, Breath Sounds Present Cardiovascular: Positive: Normal, RRR Musculoskeletal: Positive: Normal Neurological: Positive: Sensory/Motor Intact, Alert, Oriented to Person Place, Time, CN Intact II-III Psychiatric: Positive: Normal - Anaid Coma Scale Best Eye Response: 4 - Spontaneous Best Motor Response: 6 - Obeys Commands Best Verbal Response: 5 - Oriented Coma Scale Total: 15 Diagnostics - Vital Signs Vital Signs Temp Pulse Resp BP Pulse Ox 10/13/18 23:33 99.4 F 80 16 149/92 99 10/13/18 21:33 98.5 F 81 15 155/108 98 - Laboratory Lab Statement: Any lab studies that have been ordered have been reviewed, and results considered in the medical decision making process. - CT brain CT Interpretation Completed By: Radiologist Summary of CT Findings: IMPRESSION: No acute intracranial abnormality. Chronic microvascular ischemic changes. neck CT Interpretation Completed By: Radiologist Summary of CT Findings: IMPRESSION: No acute abnormality. Head Injury Course/Dx Course Of Treatment: 53 year old male presents with head injury for the couple days ago. He states that he slipped backwards and struck his head and neck on the stair. He states that he has been having worsening headache for the past couple days. He was not able to his neck until yesterday and now has full range of motion of his neck. He denies any numbness tingling. No change in vision. Admits to photophobia. admits to some difficulty concentrating. Has a history of concussion. No other medical conditions. No other injury. On exam normal neuro exam. Nystagmus noted. With worsening headache got CT. CT brain normal. CT neck normal. Gave concussion precautions. told follow up primary. Patient understands agrees with plan. - Diagnoses Differential Diagnosis/HQI/PQRI: Concussion Without LOC, Contusion, Intracranial Bleed Provider Diagnoses: Head injury, Neck pain Discharge - Sign-Out/Discharge Documenting (check all that apply): Patient Departure Patient Received Moderate/Deep Sedation with Procedure: No - Discharge Plan Condition: Good Disposition: HOME Patient Education Materials: Concussion (ED) Referrals: Jatinder Smith NP [Primary Care Provider] - Additional Instructions: Place ice on area as needed Take Tylenol or ibuprofen for headache every 6 hours Modify activities as tolerated Follow up with primary within 5 days Return to ED if develop any new or worsening symptoms - Billing Disposition and Condition Condition: GOOD Disposition: Home
[2018-10-14 02:55] VITALS: BP 143/104
== END 2018-10-14 02:54 | disposition home or self-care (01) ==
LOC: ED 21:30
DX: S09.90XA Unspecified injury of head, initial encounter (principal); M54.2 Cervicalgia; W10.9XXA Fall (on) (from) unspecified stairs and steps, initial encounter; Y92.9 Unspecified place or not applicable; I10 Essential (primary) hypertension; Z79.899 Other long term (current) drug therapy; Z88.0 Allergy status to penicillin
CPT/HCPCS: 70450; 72125; 99282

== ENCOUNTER 2019-10-06 06:02 | Inpatient (IN) ==
[2019-10-06] MEDS ORDERED: NS 0.9% 1000 ml BAG 1,000 ML IV ONE ×4 (06:06→11:30)
[2019-10-06] MEDS ORDERED: Ondansetron 4 mg VIAL 2 MG/ML 2 ml VIAL IV ONE (06:16)
[2019-10-06] MEDS ORDERED: Dextrose 50% VIAL 50 ml IV PRN (06:17)
[2019-10-06] MEDS ORDERED: Dextrose 50% Syringe 50 ml 25 GM/50 ML SYRINGE ONE (06:18)
[2019-10-06] MEDS ORDERED: Naloxone 0.4 mg VIAL 0.4 mg/ml 1 ml VIAL IV PUSH ONE (06:19)
[2019-10-06 06:25] LABS: ABS Basophils 0.1 10^3/ul (0-0.2); ABS Eosinophils 0.2 10^3/ul (0-0.6); ABS Lymphocytes 2.5 10^3/ul (1.0-4.8); ABS Monocytes 0.5 10^3/ul (0-0.8); Eosinophil % 2.2 %; Hematocrit 43 % (42-52); Hemoglobin 14.5 g/dL (14.0-18.0); Mean Corpuscular HGB Conc 34 g/dL (31-36); Mean Corpuscular Hemoglobin 32 pg (27-31); Mean Corpuscular Volume 95 fL (80-94); Mean Platelet Volume 8.7 fL (7.4-10.4); Nucleated Red Blood Cells % 0.1; Platelet Count 210 10^3/uL (150-450); Red Cell Distribution Width 13 % (10-15); White Blood Count 8.3 10^3/uL (3.5-10.8)
[2019-10-06 06:35] LABS: Albumin 4.5 g/dL (3.2-5.2); CO2 Carbon Dioxide 21 mmol/L (22-32); Calcium 8.5 mg/dL (8.6-10.3); Chloride 87 mmol/L (101-111); Sodium 123 mmol/L (135-145)
[2019-10-06] MEDS ORDERED: Lorazepam PYXIS KEY PRN ×4 (06:39→17:57)
[2019-10-06] MEDS ORDERED: LORazepam 2 mg VIAL 1 ml IV PUSH ONE ×2 (06:39→06:51)
[2019-10-06 06:42] LABS: ALT 426 U/L (7-52); AST 634 U/L (13-39); Albumin/Globulin Ratio 1.4 (1-3); Alkaline Phosphatase 76 U/L (34-104); BUN/Creatinine Ratio 3.6 (8-20); Blood Urea Nitrogen 7 mg/dL (6-24); Creatine Kinase 215 U/L (10-223); EGFR African American 54.2 (>60); EGFR Non-African American 44.8 (>60); Globulin 3.2 g/dL (2-4); Glucose 89 mg/dL (70-100); Total Protein 7.7 g/dL (6.4-8.9)
[2019-10-06] MEDS ORDERED: Iodixanol (CONTRAST) 320 MG/ML 100 ML SDV IV ONE ×2 (06:44→06:46)
[2019-10-06 06:46] LABS: Urine Ketones Negative (Negative); Urine Protein N (Negative); Urine Specific Gravity 1.005 (1.010-1.030); Urine Urobilinogen N (Negative)
[2019-10-06 06:47] LABS: * N (Negative); Urine Appearance Clear; Urine Bilirubin Negative (Negative); Urine Blood N (Negative); Urine Color Yellow; Urine Glucose N (Negative); Urine Nitrite N (Negative)
[2019-10-06 06:51] LABS: Anion Gap 15 mmol/L (2-11); Potassium 6.6 mmol/L (3.5-5.0); Troponin I 0.09 ng/mL (<0.03)
[2019-10-06] MEDS ORDERED: Lorazepam PYXIS KEY ONE ×2 (06:52→17:53)
[2019-10-06] MEDS ORDERED: LORazepam 2 mg VIAL 1 ml ONE ×2 (06:53→17:53)
[2019-10-06 06:54] LABS: Urine Bacteria 1+ (Absent); Urine Red Blood Cell Trace(0-2/hpf) (Absent); Urine Squamous Epithelial Cell Present (Absent); Urine White Blood Cell Trace(0-5/hpf) (Absent)
[2019-10-06] MEDS ORDERED: Propofol 10 mg/ml 100 ML BTL 100 ML IV ONE ×2 (07:17→08:00)
[2019-10-06 08:03] LABS: Acetaminophen < 15 mcg/mL; Alcohol, S 323 mg/dL (<10); Salicylate < 2.50 mg/dL (<30)
[2019-10-06 08:18] LABS: Urine Benzodiazepine Screen Presumptive Positive (None Detect); Urine Cannabinoids Screen Presumptive Positive (None Detect); Urine Opiates Screen None Detected (None Detect)
[2019-10-06 08:41] LABS: Magnesium 3.3 mg/dL (1.9-2.7)
[2019-10-06 08:46] LABS: Activated Partial Thrombo Time 32.2 seconds (26.0-38.0); INR 1.03 (0.82-1.09)
[2019-10-06 08:47] LABS: Phosphorus 12.7 mg/dL (2.5-5.0)
[2019-10-06 09:30] LABS: Troponin I 0.12 ng/mL (<0.03)
[2019-10-06] MEDS: Dexmedetomidine 1,000 MCG in NS 0.9% 250 ml 240 ML IV SCH (09:38)
[2019-10-06] MEDS ORDERED: Lanthanum 500 mg CHEW TAB PO SCH (10:00)
[2019-10-06] MEDS: SEVELAMER CARB PO SCH ×2 (10:04→10:09)
[2019-10-06] MEDS: D5W 1/2 NS 1000 ml BAG 1,000 ML IV SCH (11:36)
[2019-10-06] MEDS: Lanthanum 500 mg CHEW TAB G TUBE SCH ×2 (11:42→18:45)
[2019-10-06] MEDS: Thiamine 100 MG/ML 2 ml VIAL 500 MG in NS 0.9% 250 ml 250 ML IV SCH ×2 (12:19→19:56)
[2019-10-06 12:49] LABS: Anion Gap 12 mmol/L (2-11); BUN/Creatinine Ratio 5.9 (8-20); Blood Urea Nitrogen 7 mg/dL (6-24); CO2 Carbon Dioxide 18 mmol/L (22-32); Calcium 6.6 mg/dL (8.6-10.3); Chloride 100 mmol/L (101-111); Creatine Kinase 885 U/L (10-223); EGFR African American 77.7 (>60); EGFR Non-African American 64.2 (>60); Glucose 81 mg/dL (70-100); Phosphorus 3.1 mg/dL (2.5-5.0); Potassium 3.6 mmol/L (3.5-5.0); Sodium 130 mmol/L (135-145)
[2019-10-06 13:05] LABS: Troponin I 0.33 ng/mL (<0.03)
[2019-10-06] MEDS: cefTRIAXone 1 gm/50 mL NS BAG 1 GM/50 ML BAG IVPB SCH (15:09)
[2019-10-06] MEDS ORDERED: Acetylcysteine INHALATION SOL 200 MG/ML NEB.SOLN 10 ML ONE (15:19)
[2019-10-06] MEDS ORDERED: Etomidate 40 mg/20 ml (2 MG/ML) 20 ml VIAL (40 mg) ONE (15:41)
[2019-10-06] MEDS: Azithromycin 500 mg/250 ml NS 500 MG/250 ML BAG IVPB SCH (15:57)
[2019-10-06] MEDS ORDERED: Norepinephrine 16MCG/ML IVPRE 4,000 MCG/250 ML BAG IV ONE (16:33)
[2019-10-06] MEDS ORDERED: Albuterol/Ipratropium NEB.SOL (2.5/0.5 MG) 3 ML NEB.SOLN ONE ×2 (16:42→16:46)
[2019-10-06] MEDS ORDERED: Albuterol/Ipratropium NEB.SOL (2.5/0.5 MG) 3 ML NEB.SOLN INH ONE (16:48)
[2019-10-06] MEDS ORDERED: NS 0.9% 500 ml BAG 500 ML IV ONE (16:59)
[2019-10-06] MEDS ORDERED: Norepinephrine 16MCG/ML IVPRE 4,000 MCG/250 ML BAG IV SCH (17:00)
[2019-10-06] MEDS ORDERED: LORazepam 2 mg VIAL 1 ml IV PUSH PRN (17:49)
[2019-10-06] MEDS: Chlorhexidine MOUTHWASH 0.12% 15 ML UDC TOPICAL SCH ×2 (18:29→19:56)
[2019-10-06 18:40] LABS: ABS Basophils 0.1 10^3/ul (0-0.2); ABS Lymphocytes 0.9 10^3/ul (1.0-4.8); ABS Monocytes 0.3 10^3/ul (0-0.8); ABS Neutrophils 9.8 10^3/ul (1.5-7.7); Eosinophil % 0.1 %; Hematocrit 37 % (42-52); Hemoglobin 12.5 g/dL (14.0-18.0); Lymphocyte % 7.9 %; Mean Corpuscular HGB Conc 34 g/dL (31-36); Mean Corpuscular Hemoglobin 32 pg (27-31); Mean Corpuscular Volume 94 fL (80-94); Mean Platelet Volume 8.7 fL (7.4-10.4); Nucleated Red Blood Cells % 0.1; Platelet Count 317 10^3/uL (150-450); Red Blood Count 3.93 10^6 /uL (4.18-5.48); Red Cell Distribution Width 13 % (10-15)
[2019-10-06 18:57] LABS: BUN/Creatinine Ratio 7.3 (8-20); Blood Urea Nitrogen 7 mg/dL (6-24); CO2 Carbon Dioxide 20 mmol/L (22-32); Calcium 6.8 mg/dL (8.6-10.3); Chloride 105 mmol/L (101-111); EGFR African American 99.5 (>60); EGFR Non-African American 82.3 (>60); Glucose 135 mg/dL (70-100); Magnesium 1.6 mg/dL (1.9-2.7); Phosphorus 3.3 mg/dL (2.5-5.0); Sodium 133 mmol/L (135-145)
[2019-10-06 19:00] LABS: Anion Gap 8 mmol/L (2-11); Troponin I 0.53 ng/mL (<0.03)
[2019-10-06] MEDS ORDERED: NS 0.9% 250 ml 250 ML ONE (19:48)
[2019-10-06] MEDS: LORazepam 2 mg VIAL 1 ml IV PUSH PRN ×2 (19:56→22:40)
[2019-10-06] MEDS: Pantoprazole VIAL 40 MG VIAL IV SCH (19:56)
[2019-10-06 22:17] LABS: Albumin 3.2 g/dL (3.2-5.2); Albumin/Globulin Ratio 1.5 (1-3); Alkaline Phosphatase 59 U/L (34-104); Anion Gap 10 mmol/L (2-11); BUN/Creatinine Ratio 7.4 (8-20); Blood Urea Nitrogen 7 mg/dL (6-24); CO2 Carbon Dioxide 19 mmol/L (22-32); Calcium 7.2 mg/dL (8.6-10.3); Chloride 108 mmol/L (101-111); EGFR Non-African American 84.3 (>60); Globulin 2.2 g/dL (2-4); Glucose 140 mg/dL (70-100); Magnesium 1.7 mg/dL (1.9-2.7); Phosphorus 2.7 mg/dL (2.5-5.0); Potassium 3.9 mmol/L (3.5-5.0); Sodium 137 mmol/L (135-145); Total Protein 5.4 g/dL (6.4-8.9)
[2019-10-06 22:20] LABS: Troponin I 0.52 ng/mL (<0.03)
[2019-10-06 22:53] LABS: ALT 2138 U/L (7-52); AST 6556 U/L (13-39)
[2019-10-06] MEDS: Heparin 5000 UNITS/ML 1 mL VIAL SUBCUT SCH (22:57)
[2019-10-07] MEDS: Dexmedetomidine 1,000 MCG in NS 0.9% 250 ml 240 ML IV SCH ×3 (01:03→21:14)
[2019-10-07] MEDS: Chlorhexidine MOUTHWASH 0.12% 15 ML UDC TOPICAL SCH ×6 (01:03→21:15)
[2019-10-07] MEDS: D5W 1/2 NS 1000 ml BAG 1,000 ML IV SCH (03:00)
[2019-10-07] MEDS: cefTRIAXone 1 gm/50 mL NS BAG 1 GM/50 ML BAG IVPB SCH ×2 (03:00→15:14)
[2019-10-07] MEDS: LORazepam 2 mg VIAL 1 ml IV PUSH PRN ×8 (03:38→21:58)
[2019-10-07] MEDS: Thiamine 100 MG/ML 2 ml VIAL 500 MG in NS 0.9% 250 ml 250 ML IV SCH ×3 (04:24→21:15)
[2019-10-07 05:36] LABS: ABS Basophils 0.1 10^3/ul (0-0.2); ABS Eosinophils 0.1 10^3/ul (0-0.6); ABS Lymphocytes 0.9 10^3/ul (1.0-4.8); ABS Monocytes 0.1 10^3/ul (0-0.8); ABS Neutrophils 12.5 10^3/ul (1.5-7.7); Eosinophil % 0.8 %; Hematocrit 38 % (42-52); Hemoglobin 12.9 g/dL (14.0-18.0); Lymphocyte % 6.9 %; Mean Corpuscular HGB Conc 34 g/dL (31-36); Mean Corpuscular Hemoglobin 32 pg (27-31); Mean Corpuscular Volume 94 fL (80-94); Platelet Count 283 10^3/uL (150-450); Red Blood Count 4.07 10^6 /uL (4.18-5.48); Red Cell Distribution Width 13 % (10-15); White Blood Count 13.8 10^3/uL (3.5-10.8)
[2019-10-07] MEDS: Heparin 5000 UNITS/ML 1 mL VIAL SUBCUT SCH ×3 (05:55→21:14)
[2019-10-07 06:00] LABS: Anion Gap 7 mmol/L (2-11); Blood Urea Nitrogen 7 mg/dL (6-24); CO2 Carbon Dioxide 22 mmol/L (22-32); Calcium 7.1 mg/dL (8.6-10.3); Chloride 108 mmol/L (101-111); EGFR African American 94.9 (>60); EGFR Non-African American 78.5 (>60); Glucose 173 mg/dL (70-100); Magnesium 1.7 mg/dL (1.9-2.7); Phosphorus 1.2 mg/dL (2.5-5.0); Potassium 3.5 mmol/L (3.5-5.0); Sodium 137 mmol/L (135-145); Troponin I 0.34 ng/mL (<0.03)
[2019-10-07] MEDS ORDERED: Multivitamins/Minerals TAB PO SCH (09:00)
[2019-10-07] MEDS ORDERED: Magnesium Sulfate 2 gm BAG 2 GM/50 ML BAG IVPB ONE (09:30)
[2019-10-07] MEDS: Pantoprazole VIAL 40 MG VIAL IV SCH ×2 (09:34→21:14)
[2019-10-07] MEDS ORDERED: Furosemide 20 mg/2 ml IV VIAL IV ONE (10:00)
[2019-10-07] MEDS ORDERED: Potassium & Sodium Phos 250 mg = 1 PACKET PO SCH (10:00)
[2019-10-07] MEDS ORDERED: Potassium Phosphate IV 15 MMOLE in NS 0.9% 250 ml 250 ML IVPB ONE (10:00)
[2019-10-07] MEDS: Multivitamins ADULT w/MIN LIQ 15 ML UDC FEED TUBE SCH (11:22)
[2019-10-07] MEDS: Azithromycin 500 mg/250 ml NS 500 MG/250 ML BAG IVPB SCH (15:14)
[2019-10-07] MEDS ORDERED: Potassium & Sodium Phos 250 mg = 1 PACKET PO STA (17:12)
[2019-10-07 18:55] LABS: BUN/Creatinine Ratio 6.7 (8-20); Blood Urea Nitrogen 6 mg/dL (6-24); CO2 Carbon Dioxide 24 mmol/L (22-32); Calcium 7.7 mg/dL (8.6-10.3); Chloride 110 mmol/L (101-111); EGFR African American 107.2 (>60); EGFR Non-African American 88.6 (>60); Glucose 101 mg/dL (70-100); Magnesium 1.9 mg/dL (1.9-2.7); Phosphorus 2.7 mg/dL (2.5-5.0); Sodium 138 mmol/L (135-145)
[2019-10-07 19:30] LABS: Anion Gap 4 mmol/L (2-11)
[2019-10-07] MEDS ORDERED: Lorazepam PYXIS KEY PRN (22:40)
[2019-10-07] MEDS ORDERED: LORazepam 2 mg VIAL 1 ml IV PUSH ONE (22:40)
[2019-10-07] MEDS ORDERED: LORazepam 2 mg VIAL 1 ml ONE (22:42)
[2019-10-07] MEDS ORDERED: Lorazepam PYXIS KEY ONE (22:42)
[2019-10-07] MEDS: Midazolam 50 MG VIAL IV DRIP 50 ML IV SCH (22:52)
[2019-10-08] MEDS: Midazolam 50 MG VIAL IV DRIP 50 ML IV SCH (03:36)
[2019-10-08] MEDS: cefTRIAXone 1 gm/50 mL NS BAG 1 GM/50 ML BAG IVPB SCH ×2 (05:05→15:08)
[2019-10-08] MEDS: Chlorhexidine MOUTHWASH 0.12% 15 ML UDC TOPICAL SCH ×6 (05:05→20:21)
[2019-10-08 05:43] LABS: ABS Basophils 0.1 10^3/ul (0-0.2); ABS Eosinophils 0.7 10^3/ul (0-0.6); ABS Monocytes 0.2 10^3/ul (0-0.8); ABS Neutrophils 8.3 10^3/ul (1.5-7.7); Hematocrit 39 % (42-52); Hemoglobin 13.7 g/dL (14.0-18.0); Lymphocyte % 9.8 %; Mean Corpuscular HGB Conc 35 g/dL (31-36); Mean Corpuscular Hemoglobin 32 pg (27-31); Mean Corpuscular Volume 93 fL (80-94); Mean Platelet Volume 9.4 fL (7.4-10.4); Nucleated Red Blood Cells % 0.1; Platelet Count 230 10^3/uL (150-450); Red Blood Count 4.22 10^6 /uL (4.18-5.48); Red Cell Distribution Width 14 % (10-15); White Blood Count 10.3 10^3/uL (3.5-10.8)
[2019-10-08] MEDS: Heparin 5000 UNITS/ML 1 mL VIAL SUBCUT SCH ×3 (05:52→21:27)
[2019-10-08 06:00] LABS: Albumin 2.9 g/dL (3.2-5.2); Albumin/Globulin Ratio 1.3 (1-3); Calcium 8.1 mg/dL (8.6-10.3); EGFR African American 111.5 (>60); EGFR Non-African American 92.1 (>60); Globulin 2.2 g/dL (2-4); Magnesium 1.8 mg/dL (1.9-2.7); Phosphorus 3.4 mg/dL (2.5-5.0); Potassium 3.7 mmol/L (3.5-5.0); Total Bilirubin 3.1 mg/dL (0.2-1.0); Total Protein 5.1 g/dL (6.4-8.9)
[2019-10-08] MEDS: Dexmedetomidine 1,000 MCG in NS 0.9% 250 ml 240 ML IV SCH (06:38)
[2019-10-08] MEDS: Thiamine 100 MG/ML 2 ml VIAL 250 MG in NS 0.9% 100 ml BAG 100 ML IV SCH (08:24)
[2019-10-08] MEDS ORDERED: KCL 10 MEQ/100 ML IVPREMIX 100 ml BAG IV ONE (08:37)
[2019-10-08] MEDS: Potassium Chlor 20 meq TAB.ER PO ONE (09:12)
[2019-10-08] MEDS: Lactulose 30 ml UDC PO SCH ×3 (09:13→21:08)
[2019-10-08] MEDS: Pantoprazole VIAL 40 MG VIAL IV SCH ×2 (09:14→21:23)
[2019-10-08] MEDS ORDERED: Magnesium Sulfate 2 gm BAG 2 GM/50 ML BAG IVPB ONE (10:42)
[2019-10-08] MEDS ORDERED: KCL 10 MEQ/100 ML IVPREMIX 100 ml BAG IVPB ONE (10:43)
[2019-10-08] MEDS ORDERED: KCL 20 MEQ/100 ML IVPREMIX 20 MEQ/100 ML BAG IV ONE (11:00)
[2019-10-08] MEDS: Multivitamins ADULT w/MIN LIQ 15 ML UDC FEED TUBE SCH (12:14)
[2019-10-08] MEDS: Azithromycin 500 mg/250 ml NS 500 MG/250 ML BAG IVPB SCH (15:11)
[2019-10-08] MEDS ORDERED: LORazepam 2 mg VIAL 1 ml IV PUSH PRN (19:40)
[2019-10-08] MEDS ORDERED: Haloperidol 5 mg/ml SDV IV/IM 5 MG/ML AMP IV SLOW PU PRN (21:04)
[2019-10-08] MEDS ORDERED: Ziprasidone IM 20 mg VIAL 1 ml VIAL IM ONE (23:16)
[2019-10-08] MEDS ORDERED: Ziprasidone IM 20 mg VIAL 1 ml VIAL ONE (23:19)
[2019-10-09] MEDS: Chlorhexidine MOUTHWASH 0.12% 15 ML UDC TOPICAL SCH ×2 (02:45→04:39)
[2019-10-09] MEDS: Dexmedetomidine 1,000 MCG in NS 0.9% 250 ml 240 ML IV SCH (02:53)
[2019-10-09] MEDS: cefTRIAXone 1 gm/50 mL NS BAG 1 GM/50 ML BAG IVPB SCH ×2 (02:53→15:09)
[2019-10-09 05:54] LABS: Albumin 3.2 g/dL (3.2-5.2); Albumin/Globulin Ratio 1.3 (1-3); BUN/Creatinine Ratio 7.6 (8-20); EGFR African American 124.6 (>60); Globulin 2.5 g/dL (2-4); Potassium 3.6 mmol/L (3.5-5.0); Total Bilirubin 2.7 mg/dL (0.2-1.0); Total Protein 5.7 g/dL (6.4-8.9)
[2019-10-09] MEDS: Heparin 5000 UNITS/ML 1 mL VIAL SUBCUT SCH ×3 (06:09→20:37)
[2019-10-09] MEDS: Thiamine 100 MG/ML 2 ml VIAL 250 MG in NS 0.9% 100 ml BAG 100 ML IV SCH (08:35)
[2019-10-09] MEDS: Pantoprazole VIAL 40 MG VIAL IV SCH ×2 (08:37→20:37)
[2019-10-09] MEDS: Lactulose 30 ml UDC PO SCH ×3 (08:38→20:36)
[2019-10-09 08:57] LABS: Magnesium 1.9 mg/dL (1.9-2.7); Phosphorus 3.1 mg/dL (2.5-5.0)
[2019-10-09] MEDS: D5W 1/2 NS 1000 ml BAG 1,000 ML IV SCH (09:00)
[2019-10-09] MEDS: Multivitamins ADULT w/MIN LIQ 15 ML UDC FEED TUBE SCH (09:42)
[2019-10-09 10:18] LABS: ABS Basophils 0.1 10^3/ul (0-0.2); ABS Eosinophils 0.5 10^3/ul (0-0.6); ABS Lymphocytes 1.7 10^3/ul (1.0-4.8); ABS Monocytes 0.4 10^3/ul (0-0.8); ABS Neutrophils 7.8 10^3/ul (1.5-7.7); Eosinophil % 4.9 %; Hematocrit 36 % (42-52); Hemoglobin 12.6 g/dL (14.0-18.0); Lymphocyte % 16.3 %; Mean Corpuscular HGB Conc 35 g/dL (31-36); Mean Corpuscular Hemoglobin 33 pg (27-31); Mean Corpuscular Volume 94 fL (80-94); Nucleated Red Blood Cells % 0.1; Platelet Count 213 10^3/uL (150-450); Red Blood Count 3.88 10^6 /uL (4.18-5.48); Red Cell Distribution Width 14 % (10-15); White Blood Count 10.5 10^3/uL (3.5-10.8)
[2019-10-09 10:36] LABS: Albumin 3.2 g/dL (3.2-5.2); Albumin/Globulin Ratio 1.2 (1-3); BUN/Creatinine Ratio 9.6 (8-20); Calcium 8.5 mg/dL (8.6-10.3); EGFR African American 136.5 (>60); EGFR Non-African American 112.8 (>60); Globulin 2.6 g/dL (2-4); Magnesium 1.8 mg/dL (1.9-2.7); Phosphorus 2.6 mg/dL (2.5-5.0); Potassium 3.7 mmol/L (3.5-5.0); Total Bilirubin 2.5 mg/dL (0.2-1.0); Total Protein 5.8 g/dL (6.4-8.9)
[2019-10-09] MEDS ORDERED: Magnesium Sulfate IV 1GM/100ML 1 GM/100 ML BAG IV ONE (10:47)
[2019-10-09] MEDS ORDERED: Vancomycin per Pharmacy 1 EA NOTE FOLLOW UP PRN (10:51)
[2019-10-09] MEDS ORDERED: Vancomycin 1,000 MG in NS 0.9% 250 ml 250 ML IVPB ONE (11:00)
[2019-10-09] MEDS: LORazepam 2 mg VIAL 1 ml IV PUSH SCH ×2 (16:45→21:48)
[2019-10-09] MEDS: Vancomycin 1,000 MG in NS 0.9% 250 ml 250 ML IV SCH (17:59)
[2019-10-09] MEDS: Potassium Chlor 20 meq TAB.ER PO ONE (21:40)
[2019-10-10] MEDS: D5W 1/2 NS 1000 ml BAG 1,000 ML IV SCH (01:05)
[2019-10-10] MEDS: Vancomycin 1,000 MG in NS 0.9% 250 ml 250 ML IV SCH ×2 (01:05→10:55)
[2019-10-10] MEDS: cefTRIAXone 1 gm/50 mL NS BAG 1 GM/50 ML BAG IVPB SCH ×2 (03:04→15:07)
[2019-10-10 05:07] LABS: ABS Basophils 0.1 10^3/ul (0-0.2); ABS Eosinophils 0.5 10^3/ul (0-0.6); ABS Lymphocytes 2.4 10^3/ul (1.0-4.8); ABS Neutrophils 8.3 10^3/ul (1.5-7.7); Eosinophil % 3.7 %; Hematocrit 35 % (42-52); Hemoglobin 12.4 g/dL (14.0-18.0); Lymphocyte % 19.4 %; Mean Corpuscular HGB Conc 35 g/dL (31-36); Mean Corpuscular Hemoglobin 33 pg (27-31); Mean Corpuscular Volume 93 fL (80-94); Mean Platelet Volume 9.8 fL (7.4-10.4); Nucleated Red Blood Cells % 0.3; Platelet Count 215 10^3/uL (150-450); Red Blood Count 3.82 10^6 /uL (4.18-5.48); Red Cell Distribution Width 14 % (10-15); White Blood Count 12.3 10^3/uL (3.5-10.8)
[2019-10-10] MEDS: LORazepam 2 mg VIAL 1 ml IV PUSH SCH (05:15)
[2019-10-10] MEDS: Heparin 5000 UNITS/ML 1 mL VIAL SUBCUT SCH ×3 (05:39→21:13)
[2019-10-10 06:05] LABS: Albumin 3.3 g/dL (3.2-5.2); Calcium 8.5 mg/dL (8.6-10.3); Magnesium 1.6 mg/dL (1.9-2.7); Potassium 3.1 mmol/L (3.5-5.0); Total Bilirubin 2.6 mg/dL (0.2-1.0)
[2019-10-10 06:11] LABS: Albumin/Globulin Ratio 1.3 (1-3); BUN/Creatinine Ratio 4.5 (8-20); EGFR African American 108.6 (>60); EGFR Non-African American 89.8 (>60); Globulin 2.6 g/dL (2-4); Phosphorus 2.6 mg/dL (2.5-5.0); Total Protein 5.9 g/dL (6.4-8.9)
[2019-10-10] MEDS ORDERED: Magnesium Sulfate 2 gm BAG 2 GM/50 ML BAG IVPB ONE (07:41)
[2019-10-10] MEDS ORDERED: Potassium Chloride LIQUID 20 MEQ/15 ML LIQUID PO ONE (07:43)
[2019-10-10] MEDS ORDERED: Potassium Chlor 20 meq TAB.ER PO ONE (08:45)
[2019-10-10] MEDS: Multivitamins/Minerals TAB PO SCH (09:02)
[2019-10-10] MEDS: Thiamine 100 MG/ML 2 ml VIAL 250 MG in NS 0.9% 100 ml BAG 100 ML IV SCH (09:03)
[2019-10-10] MEDS: Lactulose 30 ml UDC PO SCH (09:03)
[2019-10-10] MEDS: Pantoprazole VIAL 40 MG VIAL IV SCH (09:03)
[2019-10-10] MEDS ORDERED: Vancomycin Trough Check NOTE FOLLOW UP ONE (09:30)
[2019-10-10] MEDS ORDERED: Albuterol/Ipratropium NEB.SOL (2.5/0.5 MG) 3 ML NEB.SOLN INH SCH ×2 (10:00→19:00)
[2019-10-10 13:59] LABS: Calcium 8.7 mg/dL (8.6-10.3); EGFR African American 117.7 (>60); EGFR Non-African American 97.3 (>60); Magnesium 2.1 mg/dL (1.9-2.7); Phosphorus 1.7 mg/dL (2.5-5.0); Potassium 3.5 mmol/L (3.5-5.0)
[2019-10-10] MEDS ORDERED: Potassium Phosphate IV 15 MMOLE in NS 0.9% 250 ml 250 ML IVPB ONE (14:40)
[2019-10-10] MEDS ORDERED: Lorazepam PYXIS KEY PRN (14:58)
[2019-10-10] MEDS: LORazepam 2 mg VIAL 1 ml IV PUSH PRN ×2 (15:28→21:12)
[2019-10-10] MEDS: Vancomycin(*) 1,250 MG IV IVPB SCH ×2 (17:01→23:43)
[2019-10-11 00:31] LABS: ABS Basophils 0.1 10^3/ul (0-0.2); ABS Eosinophils 0.4 10^3/ul (0-0.6); ABS Lymphocytes 2.8 10^3/ul (1.0-4.8); ABS Monocytes 1.1 10^3/ul (0-0.8); ABS Neutrophils 5.6 10^3/ul (1.5-7.7); Hematocrit 35 % (42-52); Hemoglobin 12.3 g/dL (14.0-18.0); Lymphocyte % 27.7 %; Mean Corpuscular HGB Conc 36 g/dL (31-36); Mean Corpuscular Hemoglobin 33 pg (27-31); Mean Corpuscular Volume 93 fL (80-94); Nucleated Red Blood Cells % 0.1; Platelet Count 219 10^3/uL (150-450); Red Blood Count 3.74 10^6 /uL (4.18-5.48); Red Cell Distribution Width 14 % (10-15)
[2019-10-11 00:46] LABS: BUN/Creatinine Ratio 4.7 (8-20); Calcium 8.7 mg/dL (8.6-10.3); EGFR Non-African American 93.4 (>60); Potassium 3.3 mmol/L (3.5-5.0)
[2019-10-11 01:21] LABS: Urine Appearance Clear; Urine Bilirubin Negative (Negative); Urine Blood Negative (Negative); Urine Color Yellow; Urine Glucose Negative (Negative); Urine Ketones Negative (Negative); Urine Nitrite Negative (Negative); Urine Protein Negative (Negative); Urine Specific Gravity 1.009 (1.010-1.030); Urine Urobilinogen Negative (Negative)
[2019-10-11] MEDS: LORazepam 2 mg VIAL 1 ml IV PUSH PRN (01:42)
[2019-10-11] MEDS: Albuterol/Ipratropium NEB.SOL (2.5/0.5 MG) 3 ML NEB.SOLN INH SCH ×2 (01:44→07:32)
[2019-10-11] MEDS: cefTRIAXone 1 gm/50 mL NS BAG 1 GM/50 ML BAG IVPB SCH (03:23)
[2019-10-11 05:11] LABS: Hematocrit 36 % (42-52); Hemoglobin 12.6 g/dL (14.0-18.0); Mean Corpuscular HGB Conc 35 g/dL (31-36); Mean Corpuscular Hemoglobin 32 pg (27-31); Mean Corpuscular Volume 92 fL (80-94); Mean Platelet Volume 10.3 fL (7.4-10.4); Platelet Count 216 10^3/uL (150-450); Red Blood Count 3.91 10^6 /uL (4.18-5.48); Red Cell Distribution Width 14 % (10-15); White Blood Count 10.5 10^3/uL (3.5-10.8)
[2019-10-11 05:22] LABS: Calcium 8.2 mg/dL (8.6-10.3); EGFR African American 117.7 (>60); EGFR Non-African American 97.3 (>60); Potassium 3.3 mmol/L (3.5-5.0)
[2019-10-11] MEDS: Heparin 5000 UNITS/ML 1 mL VIAL SUBCUT SCH (05:52)
[2019-10-11 07:44] LABS: Magnesium 1.8 mg/dL (1.9-2.7); Phosphorus 3.2 mg/dL (2.5-5.0)
[2019-10-11] MEDS ORDERED: Potassium Chlor 20 meq TAB.ER PO ONE (07:56)
[2019-10-11] MEDS ORDERED: Magnesium Sulfate 2 gm BAG 2 GM/50 ML BAG IVPB ONE (07:57)
[2019-10-11] MEDS: Multivitamins/Minerals TAB PO SCH (08:11)
[2019-10-11] MEDS: Vancomycin(*) 1,250 MG IV IVPB SCH (09:07)
[2019-10-11 11:28] VITALS: BP 157/117
[2019-10-11] MEDS ORDERED: Vancomycin Trough Check NOTE FOLLOW UP ONE (15:30)
== END 2019-10-11 11:15 | disposition left against medical advice (07) | DRG 208 ==
LOC: EDBD → ED 06:02 → MERGE 08:00 → ICU 08:00
PROVIDERS: ADMIT Internal Medicine; ATTEND Internal Medicine